=== PATIENT | male | born 1945 | race Caucasian/White ===

== ENCOUNTER 2017-06-14 00:59 | Inpatient (IN) | payer OTHER, MEDICARE ==
[2017-06-14 04:02] VITALS: BMI 26.6
[2017-06-14 07:31] LABS: Basophils % (A) 0 %; CH 30.1; CHCM 32.9; Eosinophils # (A) 0.1 k/uL (0-0.7); Eosinophils % (A) 1 %; HCT 38.3 % (39.0-53.0); HDW 2.73; HGB 12.8 gm/dL (13.0-17.5); Luc # (Auto) 0.15; Luc % (Auto) 2; Lymphocytes # (A) 1.5 k/uL (1.0-4.8); Lymphocytes % (A) 23 %; MCH 30.7 pg (25.0-35.0); MCHC 33.4 g/dL (31.0-37.0); Mean Platelet Volume 7.5; Monocytes # (A) 0.7 k/uL (0-1.0); Monocytes % (A) 10 %; Neutrophils # (A) 4.1 k/uL (1.3-7.7); Neutrophils % (A) 64 %; RBC 4.16 m/uL (4.30-5.90); RDW 14.6 % (11.5-15.5); WBC 6.4 k/uL (3.8-10.6)
[2017-06-14 07:50] LABS: Anion Gap 8 mmol/L; Blood Urea Nitrogen 19 mg/dL (9-20); Carbon Dioxide 27 mmol/L (22-30); Chloride 104 mmol/L (98-107); Glucose 97 mg/dL (74-99); Non-African American GFR(MDRD) >60 (>60 ml/min/1.73 sqM); Potassium 3.5 mmol/L (3.5-5.1); Sodium 139 mmol/L (137-145)
[2017-06-14] MEDS ORDERED: NON-FORMULARY DRUG (Ubidecarenone [Co Q-10] 100 MG) PO SCH (08:00)
[2017-06-14] MEDS: SODIUM CHLORIDE 0.9% 1,000 ML IV SCH ×2 (08:39→16:04)
[2017-06-14] MEDS: CHOLECALCIFEROL 1,000 UNIT TAB PO SCH ×2 (08:39→20:04)
[2017-06-14] MEDS: METOPROLOL SUCCINATE (ER) 50 MG TAB.ER.24H PO SCH (08:39)
[2017-06-14] MEDS: CLOPIDOGREL 75 MG TAB PO SCH (08:39)
[2017-06-14] MEDS: PANTOPRAZOLE 40 MG TABLET PO SCH (08:40)
[2017-06-14] MEDS ORDERED: VANCOMYCIN IV PER PHARMACY 1 EACH MISC MISCELLANE PRN (14:59)
[2017-06-14] MEDS ORDERED: VANCOMYCIN 1,500 MG in SODIUM CHLORIDE 0.9% 250 ML IVPB ONE (16:00)
[2017-06-14] MEDS: HEPARIN SODIUM,PORCINE 5,000 UNIT/ML 1 ML VIAL SQ SCH ×2 (16:08→23:48)
[2017-06-14] MEDS: COLCHICINE 0.6 MG TAB PO SCH ×2 (16:08→20:52)
--- NOTE | 2017-06-14 16:33 | CONS ---
CONSULTATION DATE OF SERVICE: 06/14/2017. REASON FOR CONSULTATION: Right knee possible septic arthritis. HISTORY OF PRESENT ILLNESS: The patient is a 72-year-old male who started having pain in his right knee area. This started on Saturday. The patient said he was working on [employer] and has been kneeling down a lot and has been on his knee a lot. On the day before he was kneeling but did not remember having any scratches or cuts to his right knee area. The morning of his presentation to the [facility], he was having a lot of pain in the right knee area. The pain was throbbing almost 10/10 with swelling of the right knee, and some redness. The patient was running a fever of 102 degrees Fahrenheit. With these symptoms, the patient was evaluated at the [place] facility where the patient did have a fever of 101-103 degrees Fahrenheit. The patient did have an aspirate of his right [place] [address] with 94% PMNs, Gram stain, culture were pending. With concern for likely septic arthritis the patient did receive a dose of Rocephin and Nafcillin and subsequently has been transferred to the [facility] for further management as there was no bed available at the [facility]. REVIEW OF SYSTEMS: Constitutional: Positive for weakness along with the fever. Eyes no complaint. ENT no complaint. Respiratory no complaint. Cardiovascular no complaint. Genitourinary no complaint. Gastrointestinal: No complaint. Musculoskeletal as per HPI. Integumentary as per HPI. PSYCHOLOGICAL: No complaint. Endocrine no complaint. Neurological no complaint. PAST MEDICAL HISTORY: Significant for hypertension, hyperlipidemia, peripheral vascular disease, gout, prostate cancer, hyperlipidemia, hypertension, coronary artery disease, kidney stone, osteoarthritis. 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 The patient did have PTCA and stent of the left leg for peripheral arterial disease. SOCIAL HISTORY: Positive for smoking, socially drinks. No drug use. FAMILY HISTORY: No pertinent findings noticed. ALLERGIES: TO STATINS, DULOXETINE. MEDICATIONS: Medication include the patient is currently on aspirin, Lipitor, vitamin D3, Plavix, colchicine, Lodine, heparin, Toprol, niacin, Protonix. EXAMINATION: Blood pressure is 143/74 with a pulse of 76, temperature 97.9. He is 96% on room air. General description is an elderly male lying in bed in no distress. No tachypnea or accessory muscle of respiration use. HEENT: Shows no pallor or scleral icterus. Oral mucosa membranes dry. Neck trachea central. No thyromegaly. Lungs unlabored breathing. Clear to auscultation anteriorly. Heart S1, S2. Regular rate and rhythm. ABDOMEN: Soft, no tenderness. Left knee is slightly swollen, tender to touch. No redness was noticed. Neurological: The patient is awake, alert, oriented x3. Mood and affect normal. LABS: BUN of 6, creatinine 0.3. The aspirate from the right knee fluid did show white count 5000 with 94% neutrophil. Final fluid crystals were negative. Uric acid of 5.5. DIAGNOSTIC IMPRESSION AND PLAN: Patient with right knee pain and swelling and redness along with a fever 102 degrees Fahrenheit. The patient did have aspirate of right knee which was cloudy with a white count of 84,000, more likely pointing towards a septic arthritis and more likely from a gram-positive skin delta as the patient has been on his knee and kneeling a lot , no fever prior to his sickness illness started. PLAN: 1. Blood cultures x1 stat. We will check a sedimentation rate, CBC and BMP. 2. Vancomycin pharmacy to dose with target of 15 along with Rocephin 2 g daily. 3. We will try to obtain cultures from the hospital. 4. Depending upon his clinical response as well as culture we will adjust medications further if needed. Thank you for this consultation. Will follow this patient along with you. MMODL / IJN: [id number] / YULI
[2017-06-14 16:36] LABS: Basophils % (A) 0 %; CH 29.9; CHCM 32.7; Eosinophils # (A) 0.1 k/uL (0-0.7); Eosinophils % (A) 1 %; HDW 2.78; Luc # (Auto) 0.13; Luc % (Auto) 2; Lymphocytes # (A) 1.3 k/uL (1.0-4.8); Lymphocytes % (A) 20 %; MCH 29.8 pg (25.0-35.0); MCHC 32.4 g/dL (31.0-37.0); MCV 92.1 fL (80.0-100.0); Mean Platelet Volume 7.4; Monocytes # (A) 0.5 k/uL (0-1.0); Monocytes % (A) 7 %; Neutrophils # (A) 4.7 k/uL (1.3-7.7); Neutrophils % (A) 70 %; RBC 4.35 m/uL (4.30-5.90); RDW 14.9 % (11.5-15.5); WBC 6.6 k/uL (3.8-10.6); WBC (Perox) 7.21
[2017-06-14 16:44] LABS: Anion Gap 9 mmol/L; Blood Urea Nitrogen 22 mg/dL (9-20); Calcium 8.9 mg/dL (8.4-10.2); Carbon Dioxide 23 mmol/L (22-30); Chloride 107 mmol/L (98-107); Glucose 99 mg/dL (74-99); Non-African American GFR(MDRD) >60 (>60 ml/min/1.73 sqM); Potassium 3.6 mmol/L (3.5-5.1); Sodium 139 mmol/L (137-145)
--- NOTE | 2017-06-14 17:18 | US ---
EXAMINATION TYPE: US venous doppler duplex LE DATE OF EXAM: 06/14/2017 5:09 PM COMPARISON: NONE CLINICAL HISTORY: R/O DVT. right leg pain SIDE PERFORMED: Bilateral TECHNIQUE: The lower extremity deep venous system is examined utilizing real time linear array sonog andrea with graded compression, doppler sonography and color-flow sonography. VESSELS IMAGED: External Iliac Vein (EIV) Common Femoral Vein Deep Femoral Vein Greater Saphenous Vein * Femoral Vein Popliteal Vein Small Saphenous Vein * Proximal Calf Veins (* superficial vessels) Right Leg: Appears negative for DVT Left Leg: Appears negative for DVT IMPRESSION: Normal exam. No evidence of deep venous thrombosis in both legs.
[2017-06-14 17:27] LABS: Erythrocyte Sedimentation Rate 68 mm/hr (0-15)
[2017-06-14] MEDS: cefTRIAXone IN SWFI 2,000 MG/20 ML SYRINGE IVP SCH (17:43)
--- NOTE | 2017-06-14 18:10 | P.HPIM ---
History of Present Illness H&P Date: 06/14/17 Chief Complaint: Right knee swelling Patient is a 72-year-old male with a known history of coronary artery disease status post stent placement, peripheral vascular disease and recent right femoral stent, hypertension, hyperlipidemia, gouty arthritis not on any medication at home and multiple other medical problems came to the hospital with complaints of left wrist pain and right knee pain swelling and pain worsening for the past 2 days. Patient also had fever and chills the day before and T-max was 102 with significant chills and sweating. Patient says that he was working well sitting on right knee 2 days ago. A arreola also had history of remote history of right knee ligament repair. Patient denied any recent trauma. Patient initially presented to the hospital where patient had right knee. Fluid analysis showed no crystals. Fluid culture is pending at this time. Uric acid 5.5 Patient was given dose of colchicine and antibiotics no cough ceftriaxone and nafcillin in the ER. Patient was also found have slightly elevated d-dimer. Patient was transferred to [facility] due to bed availability issues. Currently patient is afebrile since admission. No leukocytosis. Bilateral lower action duplex was ordered to rule out DVT. Review of Systems Constitutional: Patient denies any fever or chills . No generalized weakness or weight loss. Abdomen: Patient denied nausea vomiting and diarrhea and abdominal pain. Cardiovascular: Patient denies any chest pain or short of breath no palpitations. Respiratory: patient denied any cough is from production. No shortness of breath Neurologic: Patient denied any numbness or tingling headache. Musculoskeletal: Right knee swelling and left wrist swelling and pain Skin: Negative Psychiatric: Negative Endocrine: No heat or cold intolerance. No recent weight gain. Genitourinary: No dysuria or hematuria. All other 14 point ROS negative except the above Past Medical History Past Medical History: Cancer, Hyperlipidemia, Hypertension, Vascular Disorder Additional Past Medical History / Comment(s): OA, calculus of kidney, impotence , PVD, arthralgia, colonic polyps, smoker, gouty arthritis, DJD of the left hip , impaired fasting glucose, prostate cancer, PAD, malignant melanoma, CAD. History of Any Multi-Drug Resistant Organisms: None Reported Past Surgical History: Heart Catheterization With Stent, Prostate Surgery Additional Past Surgical History / Comment(s): Patient has had 2 stents put in ( one through right radial artery and one through femoral artery; most recent around May 2017 w/ 100% blockage). Surgery for skin cancer. Prostate removal r/t prostate ca. Colonoscopies. Past Anesthesia/Blood Transfusion Reactions: No Reported Reaction Date of Last Stent Placement:: 2016 Past Psychological History: No Psychological Hx Reported Smoking Status: Current every day smoker Past Alcohol Use History: None Reported Past Drug Use History: None Reported - Past Family History Father Additional Family Medical History / Comment(s): Father had cancer. Brother(s) Additional Family Medical History / Comment(s): Brother had cancer. Mother Additional Family Medical History / Comment(s): Heart problems. Medications and Allergies Home Medications Medication Instructions Recorded Confirmed Type Aspirin [Adult Low Dose Aspirin EC] 81 mg PO DAILY@199906/14/17 06/14/17 History Cholecalciferol (Vitamin D3) 1,000 unit PO BID@0800,199906/14/17 06/14/17 History [Vitamin D3] Clopidogrel [Plavix] 75 mg PO DAILY@0800 06/14/17 06/14/17 History Colloidal Oatmeal [Eucerin Eczema 1 applic TOPICAL BID 06/14/17 06/14/17 History Relief] Diclofenac Sodium 50 mg PO TID 06/14/17 06/14/17 History Hydrochlorothiazide 12.5 mg PO DAILY@0800 06/14/17 06/14/17 History Metoprolol Succinate [Toprol XL] 50 mg PO DAILY@0800 06/14/17 06/14/17 History Niacin 500 mg PO DAILY@199906/14/17 06/14/17 History Omeprazole 20 mg PO DAILY@0800 06/14/17 06/14/17 History Rosuvastatin [Crestor] 10 mg PO ARMSTRONG 06/14/17 06/14/17 History Triamcinolone 0.1% Cream [Kenalog] 1 applic TOPICAL BID 06/14/17 06/14/17 History Ubidecarenone [Co Q-10] 100 mg PO DAILY@0800 06/14/17 06/14/17 History Allergies Allergy/AdvReac Type Severity Reaction Status Date / Time Eibzxzy-Uiu-Gvi Reductase AdvReac Intermediate Pain Verified 06/14/17 07:50 Inhibitor duloxetine AdvReac Unknown Verified 06/14/17 07:50 Physical Exam Vitals: Vital Signs Temp Pulse Resp BP Pulse Ox 06/14/17 07:00 97.7 F 70 18 131/61 96 06/14/17 03:57 97.2 F L 71 16 127/58 94 L Intake and Output 06/13/17 06/14/17 06/14/17 22:59 06:59 14:59 Other: Voiding Method Toilet # Voids 1 Weight 88.904 kg PHYSICAL EXAMINATION: Patient is lying in the bed comfortably, no acute distress, awake alert and oriented.. HEENT: Normocephalic. Neck is supple. Pupils reactive. Nostrils clear. Oral cavity is moist. Ears reveal no drainage. Neck reveals no JVD, carotid bruits, or thyromegaly. CHEST EXAMINATION: Trachea is central. Symmetrical expansion. Lung castillo clear to auscultation and percussion. CARDIAC: Normal S1, S2 with no gallops. No murmurs ABDOMEN: Soft. Bowel sounds normal. No organomegaly. No abdominal bruits. Extremities: reveal no edema. No clubbing or cyanosis Neurologically awake, alert, oriented x3 with well-coordinated movements. No focal deficits noted Skin: No rash or skin lesions. Psychiatric: Operative. Nonsuicidal Musculoskeletal: Patient does have right knee effusion and decreased range of motion. Left wrist tender to palpation and warm.. Results CBC & Chem 7: 06/14/17 16:19 06/14/17 16:19 Labs: Abnormal Lab Results - Last 24 Hours (Table) 06/14/17 06/14/17 Range/Units 07:15 07:15 RBC 4.16 L (4.30-5.90) m/uL Hgb 12.8 L (13.0-17.5) gm/dL Hct 38.3 L (39.0-53.0) % D-Dimer 0.74 H (<0.60) mg/L FEU Thrombosis Risk Factor Assmnt - DVT/VTE Prophylaxis DVT/VTE Prophylaxis: Pharmacologic Prophylaxis ordered - Choose All That Apply Any of the Below Risk Factors Present?: Yes Each Risk Factor Represents 2 Points: Age 61-74 years Other congenital or acquired thrombophilia - If yes, enter type in comment: No Thrombosis Risk Factor Assessment Total Risk Factor Score: 2 Thrombosis Risk Factor Assessment Level: Low Risk Assessment and Plan Assessment: #1 right knee and left wrist swelling and pain likely due to acute gouty arthritis and DJD. Possible septic arthritis. Awaiting culture reports. We will consult ID for evaluation. We will hold antibiotics at this time. Patient does not have any fever now R leukocytosis. #2 elevated d-dimer. Will check lower extremity duplex to rule out DVT #3 coronary artery disease with history of stent placement about a year back #4 peripheral vascular disease with recent left femoral stent #4 history of gout #6 hypertension controlled #7 hyperlipidemia History of prostate cancer DJD of left hip Plan: Patient will be started on colchicine and continue with NSAID for pain management. We will follow up fluid culture report from [facility]. ID will be consulted for evaluation. We will hold antibiotics at this time. Continue with home medications and follow closely. Further recommendations based on the clinical course. Time with Patient: Greater than 30
[2017-06-14] MEDS: ETODOLAC 200 MG CAPSULE PO SCH (20:03)
[2017-06-14] MEDS: ASPIRIN 81 MG PO SCH (20:04)
[2017-06-14] MEDS: NIACIN TR 500 MG CAPSULE.ER PO SCH (20:04)
[2017-06-15] MEDS: VANCOMYCIN 1,500 MG in SODIUM CHLORIDE 0.9% 250 ML IVPB SCH ×2 (06:10→17:52)
[2017-06-15] MEDS: CHOLECALCIFEROL 1,000 UNIT TAB PO SCH ×2 (07:58→21:30)
[2017-06-15] MEDS: COLCHICINE 0.6 MG TAB PO SCH ×2 (07:59→21:33)
[2017-06-15] MEDS: METOPROLOL SUCCINATE (ER) 50 MG TAB.ER.24H PO SCH (07:59)
[2017-06-15] MEDS: PANTOPRAZOLE 40 MG TABLET PO SCH (07:59)
[2017-06-15] MEDS: HEPARIN SODIUM,PORCINE 5,000 UNIT/ML 1 ML VIAL SQ SCH ×3 (07:59→23:39)
[2017-06-15] MEDS: CLOPIDOGREL 75 MG TAB PO SCH (08:02)
[2017-06-15] MEDS ORDERED: MAG HYDROX/AL HYDROX/SIMETH 30 ML CUP PO PRN (14:32)
--- NOTE | 2017-06-15 16:28 | P.PN ---
Subjective Progress Note Date: 06/15/17 progress note being dictated for Dr. Miranda Interval history:Patient is a 72-year-old male with a known history of coronary artery disease status post stent placement, peripheral vascular disease and recent right femoral stent, hypertension, hyperlipidemia, gouty arthritis not on any medication at home and multiple other medical problems came to the hospital with complaints of left wrist pain and right knee pain swelling and pain worsening for the past 2 days. Patient also had fever and chills the day before and T-max was 102 with significant chills and sweating. Patient says that he was working well sitting on right knee 2 days ago. A arreola also had history of remote history of right knee ligament repair. Patient denied any recent trauma. Patient initially presented to the hospital where patient had right knee. Fluid analysis showed no crystals. Fluid culture is pending at this time. Uric acid 5.5 Patient was given dose of colchicine and antibiotics no cough ceftriaxone and nafcillin in the ER. Patient was also found have slightly elevated d-dimer. Patient was transferred to [facility] due to bed availability issues. Currently patient is afebrile since admission. No leukocytosis. Bilateral lower action duplex was ordered to rule out DVT. 06/15/2017 Dopplers of right and left legs reported negative for DVT. evaluated by infectious disease and placed on both vancomycin andRocephin.aspirate of his right knee revealed a white count of 85,000 with 94 % PMNs. Cultures from prior hospital being obtained.afebrile, normal WBC.blood cultures pending. Denies chest pain, palpitations or increasing shortness of breath. Objective - Vital Signs Vital signs: Vital Signs Temp 98.4 F 06/15/17 15:00 Pulse 65 06/15/17 15:00 Resp 18 06/15/17 15:00 BP 145/79 06/15/17 15:00 Pulse Ox 96 06/15/17 15:00 Intake & Output 06/14/17 06/15/17 06/15/17 18:59 06:59 18:59 Intake Total 480 Balance 480 Intake: Oral 480 Other: # Voids 2 2 2 - Exam Patient is lying in the bed comfortably, no acute distress, awake alert and oriented.. HEENT: Normocephalic. Neck is supple. Pupils reactive. Nostrils clear. Oral cavity is moist. Ears reveal no drainage. Neck reveals no JVD, carotid bruits, or thyromegaly. CHEST EXAMINATION: Trachea is central. Symmetrical expansion. Lung castillo clear to auscultation and percussion. CARDIAC: Normal S1, S2 with no gallops. No murmurs ABDOMEN: Soft. Bowel sounds normal. No organomegaly. No abdominal bruits. Extremities: No clubbing or cyanosis Neurologically awake, alert, oriented x3 with well-coordinated movements. No focal deficits noted Skin: No rash or skin lesions. Psychiatric: Operative. Nonsuicidal Musculoskeletal: Patient does have right knee effusion and decreased range of motion.right knee mild edema and tender. Left wrist tender to palpation and warm. - Labs CBC & Chem 7: 06/14/17 16:19 06/14/17 16:19 Labs: Abnormal Lab Results - Last 24 Hours (Table) 06/14/17 06/14/17 Range/Units 16:19 16:19 ESR 68 H (0-15) mm/hr BUN 22 H (9-20) mg/dL Assessment and Plan Assessment: #1 right knee and left wrist swelling and pain likely due to septic arthritis, possible acute gouty arthritis and DJD Awaiting culture reports. #2 elevated d-dimer. DVTruled out #3 coronary artery disease with history of stent placement about a year back #4 peripheral vascular disease with recent left femoral stent #4 history of gout #6 hypertension controlled #7 hyperlipidemia History of prostate cancer DJD of left hip plan: Continue on current medication regime ,monitoring and symptomatic treatment. [facility] consulted regarding septic arthritis. Antibiotics of Rocephin and vancomycin as per infectious disease. cultures from prior hospitalization been obtained..blood cultures pending. Further recommendations to follow. The impression and plan of care has been dictated as directed. : I performed a history and examination of this patient, discussed the same with the dictator. I agree with the dictator's note ,documented as a scribe. Any additional findings or plans will be noted.
[2017-06-15] MEDS: cefTRIAXone IN SWFI 2,000 MG/20 ML SYRINGE IVP SCH (16:48)
--- NOTE | 2017-06-15 17:19 | XR ---
EXAMINATION TYPE: XR knee complete RT DATE OF EXAM: 06/15/2017 COMPARISON: NONE HISTORY: Knee pain TECHNIQUE: 3 views FINDINGS: There is some narrowing at the medial joint space with spurring of femoral and tibial condy les. There is calcification of the menisci. There are pins from previous surgery at the medial tibial condyle. I see no fracture. IMPRESSION: Osteoarthritic changes with chondrocalcinosis. No fracture seen.
[2017-06-15] MEDS: ASPIRIN 81 MG PO SCH (21:29)
[2017-06-15] MEDS: NIACIN TR 500 MG CAPSULE.ER PO SCH (21:30)
[2017-06-15] MEDS: ETODOLAC 200 MG CAPSULE PO SCH (21:31)
[2017-06-16] MEDS: VANCOMYCIN 1,500 MG in SODIUM CHLORIDE 0.9% 250 ML IVPB SCH ×2 (05:53→17:46)
--- NOTE | 2017-06-16 07:08 | PN ---
PROGRESS NOTE DATE OF SERVICE: 06/15/2017. REASON FOR FOLLOWUP: Right knee septic arthritis. INTERVAL HISTORY: The patient is afebrile. Has been breathing comfortably. Denies any chest pain, shortness of breath or cough. No abdominal pain. Pain to the right knee is currently controlled. EXAMINATION: Blood pressure 131/55 with a pulse of 72. Temperature is 97.2. He is 93% on room air. General description is an elderly male lying in bed in no distress. RESPIRATORY SYSTEM: Unlabored breathing. Clear to auscultation anteriorly. HEART: S1, S2. Regular rate and rhythm. ABDOMEN: Right knee swelling, redness improved. LAB: The patient did have elevated sedimentation rate of 68, CRP 2.7. Blood culture here so far negative. DIAGNOSTIC IMPRESSION AND PLAN: Patient with right knee septic arthritis, likely status post aspirate at the [facility] [address]. While waiting for the culture to finalize keep the patient on Rocephin and Vanco. The discharge antibiotic will depend on the culture report. May benefit from ortho evaluation. Plan of care discussed with the nurse practitioner for the primary team. MMODL / IJN: [id number] /
[2017-06-16] MEDS: CLOPIDOGREL 75 MG TAB PO SCH (07:59)
[2017-06-16] MEDS: CHOLECALCIFEROL 1,000 UNIT TAB PO SCH ×2 (07:59→20:16)
[2017-06-16] MEDS: HEPARIN SODIUM,PORCINE 5,000 UNIT/ML 1 ML VIAL SQ SCH ×2 (07:59→16:11)
[2017-06-16] MEDS: PANTOPRAZOLE 40 MG TABLET PO SCH (08:00)
[2017-06-16] MEDS: COLCHICINE 0.6 MG TAB PO SCH ×2 (08:00→20:16)
[2017-06-16] MEDS: METOPROLOL SUCCINATE (ER) 50 MG TAB.ER.24H PO SCH (08:00)
--- NOTE | 2017-06-16 09:05 | P.CNOR ---
History of Present Illness - [facility] Consult date: 06/16/17 History of present illness: The patient is a 72-year-old male with multiple medical problems who orthopedics has been consulted for possible septic right knee. The patient has had just under a week of progressively worsening knee pain. He denies any open wounds or injuries, but does state that he was working on his knee earlier this week. He was admitted to the [facility] in [place]. Earlier this week the patient had an aspiration. The patient's daughter who is at bedside said that several vials of fluid were drawn off. According to the patient and his family they were told the white count came back 85,000. Due to limitations with the DC being able to check blood work the patient was transferred to [place]. Orthopedics has been consulted to evaluate his right knee. At the time of my evaluation the patient is complaining of right knee pain that radiates down to his ankle. The patient states that he would be able to walk. He denies fevers or chills. He denies feeling systemically sick. He has no nausea or vomiting. The patient has a remote history of ligamentous repair to the right knee in the 1970s. Past Medical History Past Medical History: Cancer, Hyperlipidemia, Hypertension, Vascular Disorder Additional Past Medical History / Comment(s): OA, calculus of kidney, impotence , PVD, arthralgia, colonic polyps, smoker, gouty arthritis, DJD of the left hip , impaired fasting glucose, prostate cancer, PAD, malignant melanoma, CAD. History of Any Multi-Drug Resistant Organisms: None Reported Past Surgical History: Heart Catheterization With Stent, Prostate Surgery Additional Past Surgical History / Comment(s): Patient has had 2 stents put in ( one through right radial artery and one through femoral artery; most recent around May 2017 w/ 100% blockage). Surgery for skin cancer. Prostate removal r/t prostate ca. Colonoscopies. Past Anesthesia/Blood Transfusion Reactions: No Reported Reaction Date of Last Stent Placement:: 2016 Past Psychological History: No Psychological Hx Reported Smoking Status: Current every day smoker Past Alcohol Use History: None Reported Past Drug Use History: None Reported - Past Family History Father Additional Family Medical History / Comment(s): Father had cancer. Brother(s) Additional Family Medical History / Comment(s): Brother had cancer. Mother Additional Family Medical History / Comment(s): Heart problems. Medications and Allergies Home Medications Medication Instructions Recorded Confirmed Type Aspirin [Adult Low Dose Aspirin EC] 81 mg PO DAILY@199906/14/17 06/14/17 History Cholecalciferol (Vitamin D3) 1,000 unit PO BID@0800,199906/14/17 06/14/17 History [Vitamin D3] Clopidogrel [Plavix] 75 mg PO DAILY@0800 06/14/17 06/14/17 History Colloidal Oatmeal [Eucerin Eczema 1 applic TOPICAL BID 06/14/17 06/14/17 History Relief] Diclofenac Sodium 50 mg PO TID 06/14/17 06/14/17 History Hydrochlorothiazide 12.5 mg PO DAILY@0800 06/14/17 06/14/17 History Metoprolol Succinate [Toprol XL] 50 mg PO DAILY@0806/14/17 06/14/17 History Niacin 500 mg PO DAILY@199906/14/17 06/14/17 History Omeprazole 20 mg PO DAILY@0800 06/14/17 06/14/17 History Rosuvastatin [Crestor] 10 mg PO ARMSTRONG 06/14/17 06/14/17 History Triamcinolone 0.1% Cream [Kenalog] 1 applic TOPICAL BID 06/14/17 06/14/17 History Ubidecarenone [Co Q-10] 100 mg PO DAILY@0800 06/14/17 06/14/17 History Allergies Allergy/AdvReac Type Severity Reaction Status Date / Time Rivezbj-Kqf-Juw Reductase AdvReac Intermediate Pain Verified 06/14/17 07:50 Inhibitor duloxetine AdvReac Unknown Verified 06/14/17 07:50 Physical Examination The patient is in no apparent distress and is alert and able to answer questions. His head is normocephalic and atraumatic. He has no neutral rigidity. He demonstrates nonlabored breathing with symmetric chest expansion. His abdomen is soft and nonobese. A focused examination of the right lower extremity was conducted. On inspection there is no overlying erythema. There are no open wounds. There is a healed incision over the medial aspect of the knee from his prior MCL reconstruction. There is a mild to moderate knee effusion. There is slight discomfort with passive range of motion of the knee. The thigh and calf are soft. Distally the right leg is neurovascularly intact. Results - Labs Labs: Abnormal Lab Results - Last 24 Hours (Table) 06/15/17 Range/Units 16:54 C-Reactive Protein 82.7 H (<10.0) mg/L Microbiology - Last 24 Hours (Table) 06/14/17 16:19 Blood Culture - Preliminary Blood No Growth after 24 hours H & H 06/14/17 06/14/17 Range/Units 07:15 16:19 Hgb 12.8 L 13.0 (13.0-17.5) gm/dL Hct 38.3 L 40.0 (39.0-53.0) % Result Diagrams: 06/14/17 16:19 06/14/17 16:19 Assessment and Plan Plan: The patient has a right knee effusion with a prior aspiration at the [facility] which reportedly showed 85,000 white blood cells. I discussed with the patient and his family that if he did in fact have over 50,000 white blood cells in the knee aspirate that meets criteria for needing an irrigation and debridement. Since I'm unable to see an official lab printout documenting a number of white blood cells I would like to attempt a re-aspiration of the knee. The patient will remain nothing by mouth. The fluid will be sent for a stat cell count, Gram stain, crystal analysis and cultures. If the patient has over 50,000 white blood cells in the knee I would recommend arthroscopic I and D. We will continue to closely follow. Procedure: Verbal consent for a right knee aspiration was obtained. The skin over the superolateral aspect of the knee was prepped first with alcohol then with ChloraPrep. An 18-gauge needle was inserted into the superolateral aspect of the knee and 5 mL's of cloudy, straw-colored fluid was drawn off. The needle was withdrawn and a Band-Aid was applied. The needle was removed from the syringe which was then capped and sent to the lab. The patient tolerated this well.
[2017-06-16 10:00] LABS: RBC, Body Fluid 1900 /uL
[2017-06-16] MEDS: cefTRIAXone IN SWFI 2,000 MG/20 ML SYRINGE IVP SCH (16:11)
[2017-06-16] MEDS: INDOMETHACIN 25 MG CAP PO SCH ×2 (16:12→20:16)
[2017-06-16] MEDS ORDERED: ATORVASTATIN 20 MG TAB PO SCH (20:00)
[2017-06-16] MEDS: ASPIRIN 81 MG PO SCH (20:15)
[2017-06-16] MEDS: NIACIN TR 500 MG CAPSULE.ER PO SCH (20:16)
[2017-06-17] MEDS: HEPARIN SODIUM,PORCINE 5,000 UNIT/ML 1 ML VIAL SQ SCH ×4 (00:22→23:56)
--- NOTE | 2017-06-17 00:48 | P.PN ---
Subjective Progress Note Date: 06/16/17 Principal diagnosis: Right knee septic arthritis Interval history:Patient is a 72-year-old male with a known history of coronary artery disease status post stent placement, peripheral vascular disease and recent right femoral stent, hypertension, hyperlipidemia, gouty arthritis not on any medication at home and multiple other medical problems came to the hospital with complaints of left wrist pain and right knee pain swelling and pain worsening for the past 2 days. Patient also had fever and chills the day before and T-max was 102 with significant chills and sweating. Patient says that he was working well sitting on right knee 2 days ago. A arreola also had history of remote history of right knee ligament repair. Patient denied any recent trauma. Patient initially presented to the hospital where patient had right knee. Fluid analysis showed no crystals. Fluid culture is pending at this time. Uric acid 5.5 Patient was given dose of colchicine and antibiotics no cough ceftriaxone and nafcillin in the ER. Patient was also found have slightly elevated d-dimer. Patient was transferred to [facility] due to bed availability issues. Currently patient is afebrile since admission. No leukocytosis. Bilateral lower action duplex was ordered to rule out DVT. 06/15/2017 Dopplers of right and left legs reported negative for DVT. evaluated by infectious disease and placed on both vancomycin andRocephin.aspirate of his right knee revealed a white count of 85,000 with 94 % PMNs. Cultures from prior hospital being obtained.afebrile, normal WBC.blood cultures pending. Denies chest pain, palpitations or increasing shortness of breath. 06/16/2017 Patient says that his right knee pain and swelling is much improved now. Able to bear weight. No fever no chills. No acute overnight issues. Repeat arthrocentesis of the right knee showed pelvis account of 1300. Will follow final culture reports from [facility]. Continued antibiotics. ID and heart is following. Patient is improving symptomatically left wrist pain improved as well. No swelling or redness noted. Objective - Vital Signs Vital signs: Vital Signs Temp 97.8 F 06/16/17 15:00 Pulse 62 06/16/17 15:00 Resp 18 06/16/17 15:00 BP 144/72 06/16/17 15:00 Pulse Ox 95 06/16/17 15:00 Intake & Output 06/16/17 06/16/17 06/17/17 06:59 18:59 06:59 Intake Total 240 Balance 240 Intake: Oral 240 Other: # Voids 2 - Exam PHYSICAL EXAMINATION: Patient is lying in the bed comfortably, no acute distress, awake alert and oriented.. HEENT: Normocephalic. Neck is supple. Pupils reactive. Nostrils clear. Oral cavity is moist. Ears reveal no drainage. Neck reveals no JVD, carotid bruits, or thyromegaly. CHEST EXAMINATION: Trachea is central. Symmetrical expansion. Lung castillo clear to auscultation and percussion. CARDIAC: Normal S1, S2 with no gallops. No murmurs ABDOMEN: Soft. Bowel sounds normal. No organomegaly. No abdominal bruits. Extremities: reveal no edema. No clubbing or cyanosis Neurologically awake, alert, oriented x3 with well-coordinated movements. No focal deficits noted Skin: No rash or skin lesions. Psychiatric: Cooperative. Nonsuicidal Musculoskeletal: Right knee swelling and range of motion improved. Left wrist pain improved and no redness or swelling - Labs CBC & Chem 7: 06/14/17 16:19 06/14/17 16:19 Labs: Microbiology - Last 24 Hours (Table) 06/14/17 16:19 Blood Culture - Preliminary Blood No Growth after 48 hours 06/16/17 08:15 Gram Stain - Preliminary Knee - Right Body Fluid Culture - Preliminary Assessment and Plan Assessment: #1 right knee and left wrist swelling and pain likely due to septic arthritis, possible acute gouty arthritis and DJD Awaiting culture reports. #2 elevated d-dimer. DVTruled out #3 coronary artery disease with history of stent placement about a year back #4 peripheral vascular disease with recent left femoral stent #4 history of gout #6 hypertension controlled #7 hyperlipidemia History of prostate cancer DJD of left hip plan: Continue on current medication regime ,monitoring and symptomatic treatment. [facility] consulted regarding septic arthritis. Antibiotics of Rocephin and vancomycin as per infectious disease. cultures from prior hospitalization been obtained..blood cultures no growth so far. Indomethacin was added.. Further recommendations to follow.
[2017-06-17] MEDS ORDERED: VANCOMYCIN TROUGH DUE 1 EACH MISC MISCELLANE ONE (05:00)
[2017-06-17 05:01] LABS: Basophils % (A) 0 %; CH 29.6; CHCM 32.2; Eosinophils # (A) 0.1 k/uL (0-0.7); Eosinophils % (A) 2 %; HDW 2.93; HGB 11.3 gm/dL (13.0-17.5); Luc # (Auto) 0.11; Luc % (Auto) 3; Lymphocytes # (A) 1.4 k/uL (1.0-4.8); Lymphocytes % (A) 37 %; MCH 30.6 pg (25.0-35.0); MCHC 33.1 g/dL (31.0-37.0); MCV 92.4 fL (80.0-100.0); Mean Platelet Volume 7.7; Monocytes # (A) 0.4 k/uL (0-1.0); Monocytes % (A) 10 %; Neutrophils # (A) 1.9 k/uL (1.3-7.7); Neutrophils % (A) 48 %; RBC 3.68 m/uL (4.30-5.90); RDW 14.7 % (11.5-15.5); WBC 3.9 k/uL (3.8-10.6); WBC (Perox) 3.83
[2017-06-17 05:33] LABS: Anion Gap 5 mmol/L; Blood Urea Nitrogen 20 mg/dL (9-20); Carbon Dioxide 26 mmol/L (22-30); Chloride 111 mmol/L (98-107); Glucose 106 mg/dL (74-99); Non-African American GFR(MDRD) >60 (>60 ml/min/1.73 sqM); Potassium 4.1 mmol/L (3.5-5.1); Sodium 142 mmol/L (137-145)
[2017-06-17] MEDS: VANCOMYCIN 1,500 MG in SODIUM CHLORIDE 0.9% 250 ML IVPB SCH (06:25)
--- NOTE | 2017-06-17 06:30 | PN ---
PROGRESS NOTE DATE OF SERVICE: 06/16/2017. REASON FOR FOLLOWUP: Right knee septic arthritis. INTERVAL HISTORY: The patient is afebrile, has been breathing comfortably. Denies any chest pain, shortness of breath, cough. No abdominal pain, or any worsening pain in the right knee area. EXAMINATION: Blood pressure 144/72 with a pulse of 62, temperature of 97.8. He is 95% on room air. General description is an elderly male lying in bed in no distress. Respiratory system unlabored breathing. Clear to auscultation anteriorly. Heart S1, S2. Regular rate and rhythm. Abdomen soft no tenderness. LABS: The blood culture here has been negative. The culture from the knee are currently pending. DIAGNOSTIC IMPRESSION AND PLAN: Patient with right knee pain, swelling, redness with cloudy fluid from the right knee and elevated white count of 8400 in the knee aspirate fluid likely suspicious for any acute septic arthritis. [facility]. Keep the patient on Rocephin and Vanco to which she has responded. Continue supportive care. MMODL / IJN: [id number] / YULI
[2017-06-17] MEDS: CHOLECALCIFEROL 1,000 UNIT TAB PO SCH ×2 (08:05→20:33)
[2017-06-17] MEDS: INDOMETHACIN 25 MG CAP PO SCH ×3 (08:05→20:33)
[2017-06-17] MEDS: METOPROLOL SUCCINATE (ER) 50 MG TAB.ER.24H PO SCH (08:05)
[2017-06-17] MEDS: CLOPIDOGREL 75 MG TAB PO SCH (08:05)
[2017-06-17] MEDS: PANTOPRAZOLE 40 MG TABLET PO SCH (08:06)
[2017-06-17] MEDS: COLCHICINE 0.6 MG TAB PO SCH ×2 (08:06→20:34)
--- NOTE | 2017-06-17 09:55 | P.PN ---
Subjective Progress Note Date: 06/17/17 Principal diagnosis: Right knee pain Patient is a 72-year-old male seen at bedside this morning. He is being followed for his right knee pain. Joint aspirate did not show evidence of acute infection. He also has a history of gout in that knee. This morning he has little or no pain in the knee. He denies fever, chills, chest pain, shortness of breath, numbness, tingling or calf pain. Objective - Vital Signs Vital signs: Vital Signs Temp 97.6 F 06/17/17 07:00 Pulse 58 L 06/17/17 07:00 Resp 16 06/17/17 07:00 BP 161/70 06/17/17 07:00 Pulse Ox 97 06/17/17 07:00 Intake & Output 06/16/17 06/17/17 06/17/17 18:59 06:59 18:59 Intake Total 240 500 Balance 240 500 Intake: Intake, IV Titration 500 Amount Vancomycin 1,500 mg In 500 Sodium Chloride 0.9% 250 ml @ 125 mls/hr IVPB Q12H [facility] Rx#:[id number] Oral 240 Other: # Voids 2 - Exam Inspection of the right lower extremity and knee show no erythema or effusion. The knee is not hot to touch. The knee is nontender. He can flex to 90 and extend to 0 with no pain. The calf is soft and nontender. Neurovascular status is intact throughout the lower extremity. - Constitutional General appearance: Present: no acute distress - Psychiatric Psychiatric: Present: A&O x's 3, appropriate affect, intact judgment & insight - Labs CBC & Chem 7: 06/17/17 04:48 06/17/17 04:48 Labs: Abnormal Lab Results - Last 24 Hours (Table) 06/17/17 06/17/17 Range/Units 04:48 04:48 RBC 3.68 L (4.30-5.90) m/uL Hgb 11.3 L (13.0-17.5) gm/dL Hct 34.0 L (39.0-53.0) % Chloride 111 H (98-107) mmol/L Glucose 106 H (74-99) mg/dL Microbiology - Last 24 Hours (Table) 06/16/17 08:15 Gram Stain - Preliminary Knee - Right Body Fluid Culture - Preliminary 06/14/17 16:19 Blood Culture - Preliminary Blood No Growth after 48 hours Assessment and Plan (1) Right knee pain Narrative/Plan: His knee is benign this morning. There is no signs of infection, he has no pain , labs are within normal ranges and he is afebrile. He has a history of gout and recommend continued treatment as an outpatient. We will sign off for now he may follow up with us as an outpatient. Thank you Current Visit: Yes Status: Acute Priority: Medium Code(s): M25.561 - PAIN IN RIGHT KNEE SNOMED Code(s): 57588704 Time with Patient: Less than 30
--- NOTE | 2017-06-17 11:56 | PN ---
PROGRESS NOTE DATE OF SERVICE: 06/17/2017 REASON FOR FOLLOWUP: Right knee septic arthritis. INTERVAL HISTORY: The patient is afebrile, has been feeling better. Breathing comfortably. Denies any chest pain, shortness of breath or cough. No abdominal pain. Overall pain to the right knee area has improved. PHYSICAL EXAMINATION: Blood pressure 161/70 with a pulse of 58, temperature 97.6. He is 97% on room air. General description is an elderly male lying in bed in no distress. RESPIRATORY SYSTEM: Unlabored breathing, clear to auscultation anteriorly. HEART: S1, S2. Regular rate and rhythm. ABDOMEN: Soft, no tenderness. RIGHT KNEE: Overall swelling and redness has improved. LABS: Hemoglobin is 11.3, white count of 3.9 with a BUN of 20, creatinine 0.80. DIAGNOSTIC IMPRESSION AND PLAN: Patient with right knee pain, swelling, redness. He did have significant cloudy fluid that was aspirated at the [facility] with a white count of 84,000 in a patient who did have a fever and has been working hard, kneeling mostly a few days prior to his symptoms started, but likely pointing towards septic arthritis. Unfortunately, the cultures that were done at the [facility] are negative and no blood culture done at that facility, as no methicillin-resistant Staphylococcus aureus has been grown, antibiotic will be adjusted only to Rocephin 2 g daily and will discontinue the vancomycin. With clinical suspicions high for a possible septic arthritis, recommend getting a PICC line and 4 weeks of IV Rocephin, awaiting for the insurance approval. MMODL / IJN: [id number] / MTDKatarina
[2017-06-17] MEDS: cefTRIAXone IN SWFI 2,000 MG/20 ML SYRINGE IVP SCH (16:37)
[2017-06-17] MEDS: ASPIRIN 81 MG PO SCH (20:33)
[2017-06-17] MEDS: NIACIN TR 500 MG CAPSULE.ER PO SCH (20:33)
--- NOTE | 2017-06-17 21:10 | P.PN ---
Progress Note - Text The patient has no clinical evidence supporting acute septic arthritis at this point. He has no knee pain, no erythema over his knee, no knee effusion, no pain with PROM and is able to ambulate. His knee aspiration from over the weekend showed 1,300 WBCs well below the threshold of acute septic arthritis of 50,000 WBC. His gram stain was negative. His cultures have been negative to this point. His crystal analysis showed calcium pyrophosphate crystals consistent with pseudogout. Orthopaedics would recommend medical treatment of his right knee pseudogout. We will sign off at this time. Please call with any questions.
--- NOTE | 2017-06-18 00:30 | P.PN ---
Subjective Progress Note Date: 06/17/17 Principal diagnosis: Right knee septic arthritis Interval history:Patient is a 72-year-old male with a known history of coronary artery disease status post stent placement, peripheral vascular disease and recent right femoral stent, hypertension, hyperlipidemia, gouty arthritis not on any medication at home and multiple other medical problems came to the hospital with complaints of left wrist pain and right knee pain swelling and pain worsening for the past 2 days. Patient also had fever and chills the day before and T-max was 102 with significant chills and sweating. Patient says that he was working well sitting on right knee 2 days ago. A arreola also had history of remote history of right knee ligament repair. Patient denied any recent trauma. Patient initially presented to the hospital where patient had right knee. Fluid analysis showed no crystals. Fluid culture is pending at this time. Uric acid 5.5 Patient was given dose of colchicine and antibiotics no cough ceftriaxone and nafcillin in the ER. Patient was also found have slightly elevated d-dimer. Patient was transferred to [facility] due to bed availability issues. Currently patient is afebrile since admission. No leukocytosis. Bilateral lower action duplex was ordered to rule out DVT. 06/15/2017 Dopplers of right and left legs reported negative for DVT. evaluated by infectious disease and placed on both vancomycin andRocephin.aspirate of his right knee revealed a white count of 85,000 with 94 % PMNs. Cultures from prior hospital being obtained.afebrile, normal WBC.blood cultures pending. Denies chest pain, palpitations or increasing shortness of breath. 06/16/2017 Patient says that his right knee pain and swelling is much improved now. Able to bear weight. No fever no chills. No acute overnight issues. Repeat arthrocentesis of the right knee showed pelvis account of 1300. Will follow final culture reports from [facility]. Continued antibiotics. ID and heart is following. Patient is improving symptomatically left wrist pain improved as well. No swelling or redness noted. 06/17/2017 Patient denied any complaints of right knee pain now. Able to bear weight and ambulating well. Left wrist swelling and redness resolved pain resolved. ID recommends to continue with IV antibiotics in the form of ceftriaxone 2 g daily for septic arthritis. No fever no chills no complaints of chest pain or short of breath. No acute overnight issues. Patient symptomatically much improved. Objective - Vital Signs Vital signs: Vital Signs Temp 97.0 F L 06/17/17 22:48 Pulse 61 06/17/17 22:48 Resp 14 06/17/17 22:48 BP 131/60 06/17/17 22:48 Pulse Ox 97 06/17/17 22:48 Intake & Output 06/17/17 06/17/17 06/18/17 06:59 18:59 06:59 Intake Total 500 Balance 500 Intake: Intake, IV Titration 500 Amount Vancomycin 1,500 mg In 500 Sodium Chloride 0.9% 250 ml @ 125 mls/hr IVPB Q12H [facility] Rx#:[id number] Other: # Voids 2 1 - Exam PHYSICAL EXAMINATION: Patient is lying in the bed comfortably, no acute distress, awake alert and oriented.. HEENT: Normocephalic. Neck is supple. Pupils reactive. Nostrils clear. Oral cavity is moist. Ears reveal no drainage. Neck reveals no JVD, carotid bruits, or thyromegaly. CHEST EXAMINATION: Trachea is central. Symmetrical expansion. Lung castillo clear to auscultation and percussion. CARDIAC: Normal S1, S2 with no gallops. No murmurs ABDOMEN: Soft. Bowel sounds normal. No organomegaly. No abdominal bruits. Extremities: reveal no edema. No clubbing or cyanosis Neurologically awake, alert, oriented x3 with well-coordinated movements. No focal deficits noted Skin: No rash or skin lesions. Psychiatric: Cooperative. Nonsuicidal Musculoskeletal: Right knee swelling and range of motion improved. Left wrist pain improved and no redness or swelling - Labs CBC & Chem 7: 06/17/17 04:48 06/17/17 04:48 Labs: Abnormal Lab Results - Last 24 Hours (Table) 06/17/17 06/17/17 Range/Units 04:48 04:48 RBC 3.68 L (4.30-5.90) m/uL Hgb 11.3 L (13.0-17.5) gm/dL Hct 34.0 L (39.0-53.0) % Chloride 111 H (98-107) mmol/L Glucose 106 H (74-99) mg/dL Microbiology - Last 24 Hours (Table) 06/14/17 16:19 Blood Culture - Preliminary Blood No Growth after 72 hours 06/16/17 08:15 Gram Stain - Preliminary Knee - Right Body Fluid Culture - Preliminary Assessment and Plan Assessment: #1 right knee and left wrist swelling and pain likely due to septic arthritis, possible acute gouty arthritis and DJD Awaiting final culture reports. #2 elevated d-dimer. DVTruled out #3 coronary artery disease with history of stent placement about a year back #4 peripheral vascular disease with recent left femoral stent #4 history of gout #6 hypertension controlled #7 hyperlipidemia History of prostate cancer DJD of left hip plan: Continue on current medication regime ,monitoring and symptomatic treatment. [facility] consulted regarding septic arthritis. Antibiotics of Rocephin and vancomycin as per infectious disease. cultures from prior hospitalization been obtained..blood cultures no growth so far. Indomethacin was added.. ID recommends antibiotics and also ceftriaxone IV for septic arthritis. PICC line will be obtained. Due to incidence issues patient is to be transferred to [facility] to cover IV antibiotics once approved by ID at the [facility]. Social workers following transfer the patient. Hospital to get a PICC line and IV antibiotic recommendations depending on evaluation there. Otherwise patient is clinically stable.
[2017-06-18] MEDS ORDERED: MORPHINE SULFATE 10 MG/ML SYRINGE IVP PRN (01:28)
[2017-06-18 02:38] LABS: Creatine Kinase 42 U/L (55-170)
[2017-06-18 02:50] LABS: Creatine Kinase MB 0.5 ng/mL (0.0-2.4); Troponin I <0.012 ng/mL (0.000-0.034)
[2017-06-18] MEDS: PANTOPRAZOLE 40 MG TABLET PO SCH (07:45)
[2017-06-18] MEDS: METOPROLOL SUCCINATE (ER) 50 MG TAB.ER.24H PO SCH (07:45)
[2017-06-18] MEDS: COLCHICINE 0.6 MG TAB PO SCH ×2 (07:46→20:59)
[2017-06-18] MEDS: HEPARIN SODIUM,PORCINE 5,000 UNIT/ML 1 ML VIAL SQ SCH ×2 (07:46→15:32)
[2017-06-18] MEDS: CHOLECALCIFEROL 1,000 UNIT TAB PO SCH ×2 (07:46→20:59)
[2017-06-18] MEDS: CLOPIDOGREL 75 MG TAB PO SCH (07:47)
[2017-06-18] MEDS: INDOMETHACIN 25 MG CAP PO SCH ×3 (07:49→20:57)
[2017-06-18 09:07] LABS: Creatine Kinase MB 0.7 ng/mL (0.0-2.4); Troponin I 0.013 ng/mL (0.000-0.034)
[2017-06-18] MEDS ORDERED: LIDOCAINE 2% INJ 20 MG/ML SQ ONE (10:03)
--- NOTE | 2017-06-18 14:16 | P.CRDCN ---
History of Present Illness Consult date: 06/18/17 History of present illness: This is a 72-year-old male with past medical history significant for CAD with recent stenting to proximal LAD at [facility] in [place], hypertension, hyperlipidemia, peripheral vascular disease and chronic tobacco abuse. We have been asked to see him in consultation for an episode of chest pain last night. he states he woke up around 0100 with mid-sternal chest pain associated with mild shortness of breath. He denies dizziness, palpitations, nausea, vomiting or diaphoresis. The episode lasted only a couple minutes and subsided on its own. Cardiac enzymes are negative x2. EKG reveals sinus mechanism with evidence of an old inferior infarct and non-specific T-wave changes in anterior leads. Blood pressure 140/72 with heart rate 70. He is currently being treated for right knee septic joint with IV antibiotics. Review of Systems CONSTITUTIONAL: Denies fever. Denies chills. EYES: Denies blurred vision. Denies vision changes. Denies eye pain. EARS, NOSE, MOUTH & THROAT: Denies headache. Denies sore throat. Denies ear pain. CARDIOVASCULAR: Complains of one episode of chest pain associated with shortness of breath, resolved. Denies orthopnea. Denies PND. Denies palpitations. RESPIRATORY: Denies cough. GASTROINTESTINAL: Denies abdominal pain. Denies diarrhea. Denies constipation. Denies nausea. Denies vomitng. MUSCULOSKELETAL: Denies myalgias. INTEGUMENTARY: Denies pruitis. Denies rash. NEUROLOGIC: Denies numbness. Denies tingling. Denies weakness. PSYCHIATRIC: Denies anxiety. Denies depression. ENDOCRINE: Denies fatigue. Denies weight change. Denies polydipsia. Denies polyurina. GENITOURINARY: Denies burning, hematuria or urgency with micturation. HEMATOLOGIC: Denies history of anemia. Denies bleeding. Past Medical History Past Medical History: Cancer, Hyperlipidemia, Hypertension, Vascular Disorder Additional Past Medical History / Comment(s): OA, calculus of kidney, impotence , PVD, arthralgia, colonic polyps, smoker, gouty arthritis, DJD of the left hip , impaired fasting glucose, prostate cancer, PAD, malignant melanoma, CAD. History of Any Multi-Drug Resistant Organisms: None Reported Past Surgical History: Heart Catheterization With Stent, Prostate Surgery Additional Past Surgical History / Comment(s): Patient has had 2 stents put in ( one through right radial artery and one through femoral artery; most recent around May 2017 w/ 100% blockage). Surgery for skin cancer. Prostate removal r/t prostate ca. Colonoscopies. Past Anesthesia/Blood Transfusion Reactions: No Reported Reaction Date of Last Stent Placement:: 2016 Past Psychological History: No Psychological Hx Reported Smoking Status: Current every day smoker Past Alcohol Use History: None Reported Past Drug Use History: None Reported - Past Family History Father Additional Family Medical History / Comment(s): Father had cancer. Brother(s) Additional Family Medical History / Comment(s): Brother had cancer. Mother Additional Family Medical History / Comment(s): Heart problems. Medications and Allergies Home Medications Medication Instructions Recorded Confirmed Type Aspirin [Adult Low Dose Aspirin EC] 81 mg PO DAILY@199906/14/17 06/14/17 History Cholecalciferol (Vitamin D3) 1,000 unit PO BID@0806/14/17 06/14/17 History [Vitamin D3] Clopidogrel [Plavix] 75 mg PO DAILY@0800 06/14/17 06/14/17 History Colloidal Oatmeal [Eucerin Eczema 1 applic TOPICAL BID 06/14/17 06/14/17 History Relief] Diclofenac Sodium 50 mg PO TID 06/14/17 06/14/17 History Hydrochlorothiazide 12.5 mg PO DAILY@0800 06/14/17 06/14/17 History Metoprolol Succinate [Toprol XL] 50 mg PO DAILY@0806/14/17 06/14/17 History Niacin 500 mg PO DAILY@199906/14/17 06/14/17 History Omeprazole 20 mg PO DAILY@0800 06/14/17 06/14/17 History Rosuvastatin [Crestor] 10 mg PO NEWTON 06/14/17 06/14/17 History Triamcinolone 0.1% Cream [Kenalog] 1 applic TOPICAL BID 06/14/17 06/14/17 History Ubidecarenone [Co Q-10] 100 mg PO DAILY@0800 06/14/17 06/14/17 History cefTRIAXone [Rocephin] 2,000 mg IVP Q24HR #28 ml 06/17/17 Rx Allergies Allergy/AdvReac Type Severity Reaction Status Date / Time Laufwof-Ooa-Wwr Reductase AdvReac Intermediate Pain Verified 06/14/17 07:50 Inhibitor duloxetine AdvReac Unknown Verified 06/14/17 07:50 Physical Exam Vitals: Vital Signs Temp Pulse Resp BP Pulse Ox 06/18/17 07:00 97.3 F L 70 18 140/72 97 06/18/17 00:56 59 L 16 97 06/18/17 00:55 97.8 F 142/71 06/17/17 22:48 97.0 F L 61 14 131/60 97 06/17/17 15:00 97.6 F 55 L 16 158/81 97 Intake and Output 06/17/17 06/18/17 06/18/17 22:59 06:59 14:59 Other: Voiding Method Toilet # Voids 1 1 1 GENERAL: This is a 72-year-old male in no apparent distress at the time of my examination. HEENT: Head is atraumatic, normocephalic. Pupils are equal, round. Sclerae anicteric. Conjunctivae are clear. Mucous membranes of the mouth are moist. Neck is supple. There is no jugular venous distention. No carotid bruit is heard. LUNGS: Clear to auscultation no wheezes, rales or rhonchi. No chest wall tenderness is noted on palpation or with deep breathing. HEART: Regular rate and rhythm without murmurs, rubs or gallops. S1 and S2 heard. ABDOMEN: Soft, nontender. Bowel sounds are heard. No organomegaly noted. EXTREMITIES: 2+ peripheral pulses with no evidence of peripheral edema and no calf tenderness noted. NEUROLOGIC: Patient is awake, alert and oriented x3. Results 06/17/17 04:48 06/17/17 04:48 Cardiac Enzymes 06/18/17 06/18/17 Range/Units 01:47 08:00 CK-MB (CK-2) 0.5 0.7 (0.0-2.4) ng/mL Troponin I <0.012 0.013 (0.000-0.034) ng/mL Current Medications Generic Name Dose Route Start Last Admin Trade Name Freq PRN Reason Stop Dose Admin Al Hydroxide/Mg Hydroxide 30 ml 06/15/17 14:32 Maalox PO Q4HR PRN GI Upset Aspirin 81 mg 06/14/17 20:00 06/17/17 20:33 Aspirin PO 81 mg DAILY@1999 [facility] Administration Atorvastatin Calcium 20 mg 06/16/17 20:00 06/16/17 20:15 Lipitor PO 20 mg Newton@1999 [facility] Administration Ceftriaxone Sodium 2,000 mg 06/14/17 16:00 06/17/17 16:37 Rocephin IVP 2,000 mg Q24H [facility] Administration Cholecalciferol 1,000 unit 06/14/17 08:00 06/18/17 07:46 Vitamin D3 PO 1,000 unit BID@ [facility] Administration Clopidogrel Bisulfate 75 mg 06/14/17 08:00 06/18/17 07:47 Plavix PO 75 mg DAILY@799 [facility] Administration Colchicine 0.6 mg 06/14/17 14:30 06/18/17 07:46 Colcrys PO 0.6 mg BID [facility] Administration Heparin Sodium (Porcine) 5,000 unit 06/14/17 16:00 06/18/17 07:46 Heparin SQ 5,000 unit Q8HR [facility] Administration Indomethacin 50 mg 06/16/17 16:00 06/18/17 07:49 Indocin PO 50 mg TID [facility] Administration Metoprolol Succinate 50 mg 06/14/17 08:00 06/18/17 07:45 Toprol Xl PO 50 mg DAILY@08 [facility] Administration Morphine Sulfate 2 mg 06/18/17 01:28 Morphine Sulfate (Inj) IVP Q3H PRN Pain/Discomfort Niacin 500 mg 06/14/17 20:00 06/17/17 20:33 Niacin Tr PO 500 mg DAILY@1999 [facility] Administration Pantoprazole Sodium 40 mg 06/14/17 08:00 06/18/17 07:45 Protonix PO 40 mg DAILY@0800 [facility] Administration Sodium Chloride 20 ml 06/18/17 11:22 Saline Flush IV Q4HR PRN PICC Line Sodium Chloride 10 ml 06/25/17 09:00 Saline Flush IV WEEKLY [facility] Sodium Chloride 10 ml 06/18/17 11:22 Saline Flush IV Q4HR PRN PICC Line Intake and Output 06/17/17 06/18/17 06/18/17 22:59 06:59 14:59 Other: Voiding Method Toilet # Voids 1 1 1 06/17/17 04:48 06/17/17 04:48 Assessment and Plan Assessment: ASSESSMENT 1. Chest pain, atypical for acute coronary syndrome 2. History of coronary artery disease with recent stenting April at [facility]. 3. Essential hypertension 4. Hyperlipidemia 5. Chronic tobacco abuse PLAN Continue to obtain serial cardiac enzymes and EKGs to rule out an acute coronary event. Obtain 2-D echocardiogram and Doppler study to assess cardiac structure and function. Obtain previous records from the [facility] in [place]. Nurse Practitioner note has been reviewed, I agree with a documented findings and plan of care. Patient was seen and examined.
[2017-06-18 14:57] LABS: Creatine Kinase 54 U/L (55-170)
--- NOTE | 2017-06-18 14:58 | PN ---
PROGRESS NOTE DATE OF SERVICE: 06/18/2017. REASON FOR FOLLOWUP: Right hip septic arthritis. INTERVAL HISTORY: The patient is afebrile, has been breathing comfortably. Denies any chest pain, shortness of breath or cough. No abdominal pain, or any pain in the right knee area. EXAMINATION: Blood pressure 140/72 with a pulse of 70, temperature 97.3. He is 97% on room air. General description is an elderly male lying in bed in no distress. Respiratory system unlabored breathing. Clear to auscultation anteriorly. Heart S1, S2. Regular rate and rhythm. Abdomen soft, no tenderness. Right leg overall swelling and redness has improved. DIAGNOSTIC IMPRESSION AND PLAN: Patient with right knee pain, swelling, redness with fever. [place] [address] from a knee aspiration done at the [facility]. Blood cultures are negative. Underlying septic arthritis, not entirely excluded. Currently on IV Rocephin. The patient did have repeat knee aspirate and sodiumpyrophosphate crystal came positive come back today. The patient will get a PICC line at the [facility], want the PICC line before him transferred to the [facility] however now subsequently has refused the transfer and improved antibiotic in the outpatient setting. Once antibiotic arranged should be able to go home from ID standpoint. Continue supportive care. MMODL / IJN: [id number] / YULI
[2017-06-18 15:11] LABS: Creatine Kinase MB 0.7 ng/mL (0.0-2.4); Troponin I <0.012 ng/mL (0.000-0.034)
[2017-06-18] MEDS: cefTRIAXone IN SWFI 2,000 MG/20 ML SYRINGE IVP SCH (16:47)
[2017-06-18] MEDS: ASPIRIN 81 MG PO SCH (20:59)
[2017-06-18] MEDS: NIACIN TR 500 MG CAPSULE.ER PO SCH (21:00)
[2017-06-19] MEDS: HEPARIN SODIUM,PORCINE 5,000 UNIT/ML 1 ML VIAL SQ SCH ×3 (00:54→15:21)
[2017-06-19 07:42] VITALS: RESP 16
[2017-06-19] MEDS: CLOPIDOGREL 75 MG TAB PO SCH (07:50)
[2017-06-19] MEDS: METOPROLOL SUCCINATE (ER) 50 MG TAB.ER.24H PO SCH (07:50)
[2017-06-19] MEDS: COLCHICINE 0.6 MG TAB PO SCH (07:50)
[2017-06-19] MEDS: PANTOPRAZOLE 40 MG TABLET PO SCH (07:50)
[2017-06-19] MEDS: INDOMETHACIN 25 MG CAP PO SCH ×2 (07:50→15:24)
--- NOTE | 2017-06-19 08:09 | IR ---
EXAMINATION TYPE: IR cvc insert >=5 years DATE OF EXAM: 06/18/2017 COMPARISON: NONE CLINICAL HISTORY: Infection Needs long-term intravenous access for antibiotics. PROCEDURE: After informed consent, the skin overlying the upper extremity vein was localized with ultrasound and noted to be compressible and patent. An ultrasound image was obtained and submitted on the patient' s chart. The overlying skin was prepped and draped and Lidocaine was used for local anesthesia. A s kin keven was made with a scalpel. Access was gained to the vein under ultrasound guidance with a 21 gauge needle and a 0.018 inch wire was advanced. Access site was dilated with Peel-Away sheath and c atheter tailored to the appropriate length and advanced such that the distal tip is at the cavoatrial junction. Spot image was obtained verifying placement. Catheter was fixed to the skin with suture and a sterile dressing was placed following hemostasis. Catheter was aspirated and flushed with sali ne. Patient was discharged in stable condition without complication.Maximal barrier technique is uti lized. Ultrasound image is documented on the chart. Ultrasound used with sterile technique. Fluoro time and fluoroscopic images submitted to document procedure: 549 intraoperative images, 1.4 m inutes fluoroscopy time IMPRESSION: STATUS POST ULTRASOUND AND FLUOROSCOPIC GUIDED PICC LINE PLACEMENT, READY FOR USE. THIS PROCEDURE WAS PERFORMED BY THE UNDERSIGNED.
--- NOTE | 2017-06-19 12:08 | PN ---
PROGRESS NOTE Mr. De La Torre is 72-year-old male with known history of coronary artery disease who presented with infection at the right knee. He is feeling well today. His breathing is stable. He is denying any chest pain. No dizziness. No palpitation. Had an episode of sinus bradycardia during the night, but otherwise he is asymptomatic. He continued be on aspirin once a day, Lipitor 20 mg daily, Plavix 75 mg daily, metoprolol succinate 50 mg daily. PHYSICAL EXAMINATION: Blood pressure 146/60 with a heart rate in 50s. LUNGS: Clear. HEART: Regular rate and rhythm, S1, S2. No S3. No rub. ABDOMEN: Soft, nontender. EXTREMITIES: No edema. LAB DATA: Revealed troponin less than 0.012. IMPRESSION: 1. History of coronary artery disease, status post stenting of the left anterior descending artery with an episode of chest discomfort yesterday that had atypical features for ischemic heart disease and no evidence of myocardial infarction. 2. Cellulitis of the right knee. 3. Hyperlipidemia. 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 MMODL / IJN: [id number] /
--- NOTE | 2017-06-19 12:19 | ECHOF ---
Referral Reason:chest pain MEASUREMENTS -------- HEIGHT: 182.9 cm WEIGHT: 88.9 kg BP: 140/72 RVIDd: 3.0 cm (< 3.3) IVSd: 1.2 cm (0.6 - 1.1) LVIDd: 4.6 cm (3.9 - 5.3) LVPWd: 1.3 cm (0.6 - 1.1) IVSs: 1.5 cm LVIDs: 3.3 cm LVPWs: 1.9 cm LA Diam: 3.4 cm (2.7 - 3.8) LAESV Index (A-L): 26.47 ml/m Ao Diam: 3.5 cm (2.0 - 3.7) AV Cusp: 2.4 cm (1.5 - 2.6) MV EXCURSION: 24.295 mm (> 18.000) MV EF SLOPE: 75 mm/s (70 - 150) EPSS: 0.9 cm MV E Manoj: 0.87 m/s MV DecT: 188 ms MV A Manoj: 0.97 m/s MV E/A Ratio: 0.90 RAP: 15.00 mmHg RVSP: 36.04 mmHg FINDINGS -------- Sinus rhythm. This was a technically good study. The left ventricular size is normal. There is mild concentric left ventricular hypertrophy. Overa ll left ventricular systolic function is low-normal with, an EF between 50 - 55 %. The right ventricle is normal in size. Normal LA size by volume 22+/-6 ml/m2. The right atrium is normal in size. The aortic valve is trileaflet and appears structurally normal. The mitral valve is normal. Mild mitral regurgitation is present. Mild tricuspid regurgitation present. There is mild pulmonary hypertension. The right ventricular systolic pressure, as measured by Doppler, is 36.04mmHg. Trace/mild (physiologic) pulmonic regurgitation. The aortic root size is normal. The inferior vena cava is dilated with no significant inspiratory collapse which is consistent estima jude right atrial pressure of >15 mmHg. There is no pericardial effusion. CONCLUSIONS -------- 1. Sinus rhythm. 2. This was a technically good study. 3. There is mild concentric left ventricular hypertrophy. 4. Overall left ventricular systolic function is low-normal with, an EF between 50 - 55 %. 5. Normal LA size by volume 22+/-6 ml/m2. 6. The aortic valve is trileaflet and appears structurally normal. 7. The mitral valve is normal. 8. Mild mitral regurgitation is present. 9. Mild tricuspid regurgitation present. 10. There is mild pulmonary hypertension. 11. Trace/mild (physiologic) pulmonic regurgitation. 12. The aortic root size is normal. 13. The inferior vena cava is dilated with no significant inspiratory collapse which is consistent es timated right atrial pressure of >15 mmHg. 14. There is no pericardial effusion. LAMINATOR: Yarely Valles RDCS
--- NOTE | 2017-06-19 12:23 | PN ---
PROGRESS NOTE DATE OF SERVICE: 06/19/2017 REASON FOR FOLLOWUP: Possible right knee septic arthritis. INTERVAL HISTORY: The patient is afebrile, has been breathing comfortably. Denies any chest pain, shortness of breath or cough. Pain and swelling to the right leg has improved. PHYSICAL EXAMINATION: Blood pressure is 146/51 with a pulse of 50, temperature of 98.9. He is 95% on room air. General description is an elderly male up in the room in no distress. RESPIRATORY SYSTEM: Unlabored breathing, clear to auscultation anteriorly. HEART: S1, S2. Regular rate and rhythm. ABDOMEN: Soft, no tenderness. Right leg swelling redness has improved. DIAGNOSTIC IMPRESSION AND PLAN: Patient with right knee, possible septic arthritis. The patient did have elevated white count of 84,000 [facility] He did have a fever with swelling and redness and has been kneeling on his knee for a few days before he started having this problem. With the culture negative, it could be a slow-growing streptococcus. Will keep the patient on ceftriaxone 2 g daily for a total of 4 weeks with close outpatient followup. MMODL / IJN: [id number] /
[2017-06-19] MEDS: cefTRIAXone IN SWFI 2,000 MG/20 ML SYRINGE IVP SCH (15:24)
[2017-06-19 16:11] VITALS: BP 146/73; PULSE 70; TEMP 97.6
--- NOTE | 2017-06-19 17:06 | P.DS ---
Providers Date of admission: 06/14/17 03:31 Expected date of discharge: 06/19/17 Attending physician: Anthony Miranda Consults: 06/14/17 14:30 Consult Physician Routine Consulting Provider: Larry Rios Consult Reason/Comments: right knee fluid Do you want consulting provider notified?: Yes 06/15/17 16:24 Consult Physician Routine Consulting Provider: Carlos Rodriguez Consult Reason/Comments: septic arthritis Do you want consulting provider notified?: Yes [facility] Primary care physician: [facility] Hospital Course: Final Diagnoses: #1 right knee and left wrist swelling and pain possibly septic arthritis, possible acute gouty arthritis and DJD #2 elevated d-dimer. DVTruled out #3 coronary artery disease with history of stent placement about a year back #4 peripheral vascular disease with recent left femoral stent #4 history of gout #6 hypertension controlled #7 hyperlipidemia History of prostate cancer DJD of left hip Patient is a 72-year-old male with a known history of coronary artery disease status post stent placement, peripheral vascular disease and recent right femoral stent, hypertension, hyperlipidemia, gouty arthritis not on any medication at home and multiple other medical problems came to the hospital with complaints of left wrist pain and right knee pain swelling and pain worsening for the past 2 days. Patient also had fever and chills the day before and T-max was 102 with significant chills and sweating. Patient says that he was working well sitting on right knee 2 days ago. also had history of remote history of right knee ligament repair. Patient denied any recent trauma. At [facility], aspirate of his right knee revealed a white count of 85 ,000 with 94% PMNs. [place] Cultures negative, no blood cultures were obtained at the [place], Patient was given dose of colchicine and antibiotics no cough ceftriaxone and nafcillin in the ER. Patient was also found have slightly elevated d-dimer. Patient was transferred to [facility] due to bed availability issues. Bilateral lower action duplex ruled out DVT.Evaluated by orthopedic surgery. Knee aspiration reported 1300 WBCs, Gram stain negative, cultures negative, crystal analysis reported calcium pyrophosphate crystals, consistent with pseudogout as per orthopedics. Maintained on INdocin, colchicine. Evaluated by infectious disease. Maintained on IV antibiotics of Rocephin and vancomycin as per infectious disease. Significant clinical improvement. PICC line placed , with recommendations of Rocephin 2gm daily for a total of 4 weeks, as per ID for potential slow-growing streptococcusCleared by all consults for discharge. Patient is being discharged home in a stable condition with guarded prognosis. The impression and plan of care has been dictated as directed. : I performed a history and examination of this patient, discussed the same with the dictator. I agree with the dictator's note ,documented as a scribe. Any additional findings or plans will be noted. Patient Condition at Discharge: Stable Plan - Discharge Summary Discharge Rx Participant: Yes New Discharge Prescriptions: New cefTRIAXone [Rocephin] 2,000 mg IVP Q24HR #28 ml Continue Diclofenac Sodium 50 mg PO TID Metoprolol Succinate [Toprol XL] 50 mg PO DAILY@0800 Niacin 500 mg PO DAILY@1999 Clopidogrel [Plavix] 75 mg PO DAILY@0800 Omeprazole 20 mg PO DAILY@08 Aspirin [Adult Low Dose Aspirin EC] 81 mg PO DAILY@1999 Cholecalciferol (Vitamin D3) [Vitamin D3] 1,000 unit PO BID@08,1999 Hydrochlorothiazide 12.5 mg PO DAILY@08 Ubidecarenone [Co Q-10] 100 mg PO DAILY@08 Triamcinolone 0.1% Cream [Kenalog] 1 applic TOPICAL BID Rosuvastatin [Crestor] 10 mg PO ARMSTRONG Colloidal Oatmeal [Eucerin Eczema Relief] 1 applic TOPICAL BID Discharge Medication List Aspirin [Adult Low Dose Aspirin EC] 81 mg PO DAILY@199906/14/17 [History] Cholecalciferol (Vitamin D3) [Vitamin D3] 1,000 unit PO BID@08,199906/14/17 [ History] Clopidogrel [Plavix] 75 mg PO DAILY@0800 06/14/17 [History] Colloidal Oatmeal [Eucerin Eczema Relief] 1 applic TOPICAL BID 06/14/17 [History ] Diclofenac Sodium 50 mg PO TID 06/14/17 [History] Hydrochlorothiazide 12.5 mg PO DAILY@0800 06/14/17 [History] Metoprolol Succinate [Toprol XL] 50 mg PO DAILY@0800 06/14/17 [History] Niacin 500 mg PO DAILY@199906/14/17 [History] Omeprazole 20 mg PO DAILY@0806/14/17 [History] Rosuvastatin [Crestor] 10 mg PO ARMSTRONG 06/14/17 [History] Triamcinolone 0.1% Cream [Kenalog] 1 applic TOPICAL BID 06/14/17 [History] Ubidecarenone [Co Q-10] 100 mg PO DAILY@0800 06/14/17 [History] cefTRIAXone [Rocephin] 2,000 mg IVP Q24HR #28 ml 06/17/17 [Rx] Follow up Appointment(s)/Referral(s): May[facility] Light [Other] - 06/27/17 11:00 am [facility], [REFERRING] - Larry Rios MD [STAFF PHYSICIAN] - 06/27/17 9:45 am Ambulatory/Diagnostic Orders: Basic Metabolic Panel [LAB.AMB] Location: Determined By Patient C Reactive Protein [LAB.AMB] Location: Determined By Patient Complete Blood Count w/diff [LAB.AMB] Location: Determined By Patient Erythrocyte Sedimentation Rate [LAB.AMB] Location: Determined By Patient Patient Instructions/Handouts: Septic Arthritis (DC) Activity/Diet/Wound Care/Special Instructions: Complete Infusion to Supply IV Antibiotics . PICC line card given. Cardiac diet. No smoking, cessation information provided. Activity as tolerated. Discharge Disposition: HOME WITH HOME HEALTH SERVICES
--- NOTE | 2017-06-19 22:17 | P.PN ---
Subjective Progress Note Date: 06/18/17 Principal diagnosis: Right knee septic arthritis Interval history:Patient is a 72-year-old male with a known history of coronary artery disease status post stent placement, peripheral vascular disease and recent right femoral stent, hypertension, hyperlipidemia, gouty arthritis not on any medication at home and multiple other medical problems came to the hospital with complaints of left wrist pain and right knee pain swelling and pain worsening for the past 2 days. Patient also had fever and chills the day before and T-max was 102 with significant chills and sweating. Patient says that he was working well sitting on right knee 2 days ago. A arreola also had history of remote history of right knee ligament repair. Patient denied any recent trauma. Patient initially presented to the hospital where patient had right knee. Fluid analysis showed no crystals. Fluid culture is pending at this time. Uric acid 5.5 Patient was given dose of colchicine and antibiotics no cough ceftriaxone and nafcillin in the ER. Patient was also found have slightly elevated d-dimer. Patient was transferred to [facility] due to bed availability issues. Currently patient is afebrile since admission. No leukocytosis. Bilateral lower action duplex was ordered to rule out DVT. 06/15/2017 Dopplers of right and left legs reported negative for DVT. evaluated by infectious disease and placed on both vancomycin andRocephin.aspirate of his right knee revealed a white count of 85,000 with 94 % PMNs. Cultures from prior hospital being obtained.afebrile, normal WBC.blood cultures pending. Denies chest pain, palpitations or increasing shortness of breath. 06/16/2017 Patient says that his right knee pain and swelling is much improved now. Able to bear weight. No fever no chills. No acute overnight issues. Repeat arthrocentesis of the right knee showed pelvis account of 1300. Will follow final culture reports from [facility]. Continued antibiotics. ID and heart is following. Patient is improving symptomatically left wrist pain improved as well. No swelling or redness noted. 06/17/2017 Patient denied any complaints of right knee pain now. Able to bear weight and ambulating well. Left wrist swelling and redness resolved pain resolved. ID recommends to continue with IV antibiotics in the form of ceftriaxone 2 g daily for septic arthritis. No fever no chills no complaints of chest pain or short of breath. No acute overnight issues. Patient symptomatically much improved. 06/18/2017 Patient's right knee pain resolved. Patient is ambulating well. Denies any chest pain or short of breath. No fever no chills. Patient had chest pain last night and cardiology was consulted. Otherwise patient was refused for via transfer. Patient PICC line area pain tomorrow and possible discharge with IV antibiotics. Objective - Vital Signs Vital signs: Vital Signs Temp 98.5 F 06/18/17 15:00 Pulse 61 06/18/17 15:00 Resp 16 06/18/17 15:00 BP 149/70 06/18/17 15:00 Pulse Ox 97 06/18/17 15:00 Intake & Output 06/18/17 06/18/17 06/19/17 06:59 18:59 06:59 Other: Voiding Method Toilet # Voids 1 4 - Exam PHYSICAL EXAMINATION: Patient is lying in the bed comfortably, no acute distress, awake alert and oriented.. HEENT: Normocephalic. Neck is supple. Pupils reactive. Nostrils clear. Oral cavity is moist. Ears reveal no drainage. Neck reveals no JVD, carotid bruits, or thyromegaly. CHEST EXAMINATION: Trachea is central. Symmetrical expansion. Lung castillo clear to auscultation and percussion. CARDIAC: Normal S1, S2 with no gallops. No murmurs ABDOMEN: Soft. Bowel sounds normal. No organomegaly. No abdominal bruits. Extremities: reveal no edema. No clubbing or cyanosis Neurologically awake, alert, oriented x3 with well-coordinated movements. No focal deficits noted Skin: No rash or skin lesions. Psychiatric: Cooperative. Nonsuicidal Musculoskeletal: Right knee swelling and range of motion improved. Left wrist pain improved and no redness or swelling - Labs CBC & Chem 7: 06/17/17 04:48 06/17/17 04:48 Labs: Abnormal Lab Results - Last 24 Hours (Table) 06/18/17 06/18/17 06/18/17 Range/Units 01:47 08:00 13:55 Total Creatine Kinase 42 L 53 L 54 L (55-170) U/L Microbiology - Last 24 Hours (Table) 06/14/17 16:19 Blood Culture - Preliminary Blood No Growth after 96 hours 06/16/17 08:15 Gram Stain - Preliminary Knee - Right Body Fluid Culture - Preliminary Assessment and Plan Assessment: #1 right knee and left wrist swelling and pain likely due to septic arthritis, possible acute gouty arthritis and DJD cultures reviewed. #2 chest pain resolved atypical. Rule out ACS #2 elevated d-dimer. DVT ruled out #3 coronary artery disease with history of stent placement about a year back #4 peripheral vascular disease with recent left femoral stent #4 history of gout #6 hypertension controlled #7 hyperlipidemia History of prostate cancer DJD of left hip plan: Continue on current medication regime ,monitoring and symptomatic treatment. [facility] consulted regarding septic arthritis. Antibiotics of Rocephin and vancomycin as per infectious disease. cultures from prior hospitalization been obtained..blood cultures no growth so far. Indomethacin was added.. ID recommends antibiotics and also ceftriaxone IV for septic arthritis. PICC line will be obtained. Social workers following transfer the patient to [facility]. Patient was refusing to be transferred to [place].. Plan is to get a PICC line and IV antibiotic recommendations in the form of ceftriaxone 2 g daily as per ID.
== END 2017-06-19 15:49 | disposition home health service (06) | DRG 554 ==
LOC: 4MS4W 03:31
PROVIDERS: ADMIT Internal Medicine; ATTEND Internal Medicine
PROC: 02HV33Z Insertion of Infusion Device into Superior Vena Cava, Percutaneous Approach (ICD-10-PCS; principal; 2017-06-19)
PROC: B518ZZA Fluoroscopy of Superior Vena Cava, Guidance (ICD-10-PCS; 2017-06-19)
PROC: B54MZZA Ultrasonography of Right Upper Extremity Veins, Guidance (ICD-10-PCS; 2017-06-19)
DX: M11.261 Other chondrocalcinosis, right knee (principal); I10 Essential (primary) hypertension; E78.5 Hyperlipidemia, unspecified; I25.10 Atherosclerotic heart disease of native coronary artery without angina pectoris; M19.032 Primary osteoarthritis, left wrist; M17.11 Unilateral primary osteoarthritis, right knee; M16.12 Unilateral primary osteoarthritis, left hip; I73.9 Peripheral vascular disease, unspecified; F17.200 Nicotine dependence, unspecified, uncomplicated; R79.1 Abnormal coagulation profile; Z79.02 Long term (current) use of antithrombotics/antiplatelets; Z79.82 Long term (current) use of aspirin; Z79.899 Other long term (current) drug therapy; Z80.9 Family history of malignant neoplasm, unspecified; Z85.46 Personal history of malignant neoplasm of prostate; Z85.820 Personal history of malignant melanoma of skin; Z86.010 Personal history of colon polyps; Z95.5 Presence of coronary angioplasty implant and graft; Z87.442 Personal history of urinary calculi; Z71.6 Tobacco abuse counseling; Z90.79 Acquired absence of other genital organ(s)
CPT/HCPCS: 36569; 76937; 77001; 80048; 80202; 82550; 82553; 84484; 85025; 85379; 85652; 86140; 87040; 87070; 87205; 89050; 89060; 93005; 93306; 93970

== ENCOUNTER → 2018-10-23 | Outpatient (CLI) | payer OTHER ==
--- NOTE | 2018-10-23 13:46 | MR ---
EXAMINATION TYPE: MR cervical spine wo/w con DATE OF EXAM: 10/23/2018 COMPARISON: None HISTORY: Neck pain TECHNIQUE: Multiplanar, multisequence images of the cervical spine were acquired utilizing 9 mL intravenous Gada vist gadolinium contrast. Diffusion weighted imaging was performed. C2-C3: No evidence for degenerative disc disease. No disc bulge/herniation or protrusion. No Canal stenosis. Foramina are patent bilaterally. C3-C4: Lateral extension endplate disc complex results in foraminal encroachment greater on the right . No significant central canal stenosis. C4-C5: Posterior extension endplate disc complex results in moderate to severe central canal stenosis . Lateral extension of endplate disc complex results in bilateral foraminal encroachment. C5-C6: Central posterior disc herniation causes anterior mass effect on the cervical cord. There is m ild central canal stenosis. C6-C7: Lateral extension endplate disc complex results in foraminal encroachment greater on the left. Posterior broad-based disc bulge, endplate disc complex causes minimal anterior mass effect on the t hecal sac. C7-T1: No evidence for degenerative disc disease. No disc bulge/herniation or protrusion. No Canal stenosis. Foramina are patent bilaterally. Cervical segments are intact. There is normal alignment. Cervical spinal cord is of normal signal. Craniovertebral junction relationships are within normal limits. There is multilevel spondylosis. E ndplate discogenic marrow signal change is present, there is associated loss of disc signal at interv ertebral levels, loss of disc height present C3-4, C4-5 and C6-7. Superior endplate depression at T7 may be due to Schmorl's node. Cervical vertebral bodies show preserved height. Minimal anterolisthesi s grade 1 C4-5, retrolisthesis grade 1 C6-7. No significant abnormal enhancement following contrast a dministration. T2 bright focus in the right lobe of the thyroid noted incidentally IMPRESSION: Degenerative disc disease, multilevel foraminal encroachment. Spinal stenosis. Disc herniation C5-6.
== END | disposition home or self-care (01) ==
LOC: RADMRIMAIN 09:32
PROVIDERS: ATTEND Physician Assistant Medical
DX: M48.02 Spinal stenosis, cervical region (principal); M50.222 Other cervical disc displacement at C5-C6 level; M50.30 Other cervical disc degeneration, unspecified cervical region
CPT/HCPCS: 82565; 72156; 36415; A9585

== ENCOUNTER 2019-09-07 09:04 | Emergency (ER) | payer OTHER ==
[2019-09-07 09:25] VITALS: TEMP 97.7
[2019-09-07] MEDS ORDERED: SODIUM CHLORIDE 0.9% 500 ML 500 ML IV STA (09:44)
[2019-09-07] MEDS ORDERED: KETOROLAC 30 MG/ML 1 ML VIAL IVP STA (09:46)
--- NOTE | 2019-09-07 09:55 | ED ---
Abdominal Pain HPI - General Chief Complaint: Abdominal Pain Stated Complaint: poss kidney stones Time Seen by Provider: 09/07/19 09:39 Source: patient, family Mode of arrival: wheelchair Limitations: no limitations - History of Present Illness Initial Comments: Patient is a 74-year-old male presenting to emergency Department with complaints of left flank pain that started early this morning. Patient does have a history of kidney stones and he states this feels similar. He states he's been having right-sided flank pain for the last few days but that has since decreased until this morning when his left side started hurting. He did have a nausea and a slight fever yesterday. He is not currently nauseous. He denies vomiting, diarrhea. His only abdominal surgery was a hernia repair. He isn't having regular bowel movements. He denies hematuria. He has no other complaints at this time. Upon arrival to ER, his vital signs are stable. - Related Data Home Medications Medication Instructions Recorded Confirmed Aspirin [Adult Low Dose Aspirin EC] 81 mg PO DAILY@199906/14/17 06/14/17 Cholecalciferol (Vitamin D3) 1,000 unit PO BID@0806/14/17 06/14/17 [Vitamin D3] Clopidogrel [Plavix] 75 mg PO DAILY@0806/14/17 06/14/17 Colloidal Oatmeal [Eucerin Eczema 1 applic TOPICAL BID 06/14/17 06/14/17 Relief] Diclofenac Sodium 50 mg PO TID 06/14/17 06/14/17 Hydrochlorothiazide 12.5 mg PO DAILY@0800 06/14/17 06/14/17 Metoprolol Succinate [Toprol XL] 50 mg PO DAILY@0806/14/17 06/14/17 Niacin 500 mg PO DAILY@199906/14/17 06/14/17 Omeprazole 20 mg PO DAILY@0800 06/14/17 06/14/17 Rosuvastatin [Crestor] 10 mg PO ARMSTRONG 06/14/17 06/14/17 Triamcinolone 0.1% Cream [Kenalog 1 applic TOPICAL BID 06/14/17 06/14/17 0.1% Cream] Ubidecarenone [Co Q-10] 100 mg PO DAILY@0800 06/14/17 06/14/17 Previous Rx's Medication Instructions Recorded cefTRIAXone [Rocephin] 2,000 mg IVP Q24HR #28 ml 06/17/17 Cephalexin [Keflex] 500 mg PO Q6HR 7 Days #28 cap 09/07/19 Ketorolac [Toradol] 10 mg PO Q8HR #10 tab 09/07/19 Ondansetron Odt [Zofran Odt] 4 mg PO Q8HR PRN #10 tab 09/07/19 Tamsulosin [Flomax] 0.4 mg PO DAILY #5 cap 09/07/19 Allergies Allergy/AdvReac Type Severity Reaction Status Date / Time Kgynuqj-Yoh-Mkw Reductase AdvReac Intermediate Pain Verified 09/07/19 09:25 Inhibitor duloxetine AdvReac Unknown Verified 09/07/19 09:25 Review of Systems ROS Statement: Those systems with pertinent positive or pertinent negative responses have been documented in the HPI. ROS Other: All systems not noted in ROS Statement are negative. Past Medical History Past Medical History: Cancer, Hyperlipidemia, Hypertension, Vascular Disorder Additional Past Medical History / Comment(s): OA, calculus of kidney, impotence, PVD, arthralgia, colonic polyps, smoker, gouty arthritis, DJD of the left hip, impaired fasting glucose, prostate cancer, PAD, malignant melanoma, CAD. History of Any Multi-Drug Resistant Organisms: None Reported Past Surgical History: Heart Catheterization With Stent, Prostate Surgery Additional Past Surgical History / Comment(s): Patient has had 2 stents put in (one through right radial artery and one through femoral artery; most recent around May 2017 w/ 100% blockage). Surgery for skin cancer. Prostate removal r/t prostate ca. Colonoscopies. Past Anesthesia/Blood Transfusion Reactions: No Reported Reaction Date of Last Stent Placement:: 2016 Past Psychological History: No Psychological Hx Reported Smoking Status: Current every day smoker Past Alcohol Use History: None Reported Past Drug Use History: None Reported - Past Family History Father Additional Family Medical History / Comment(s): Father had cancer. Brother(s) Additional Family Medical History / Comment(s): Brother had cancer. Mother Additional Family Medical History / Comment(s): Heart problems. General Exam - General Exam Comments Initial Comments: GENERAL: Well-appearing, well-nourished and in mild distress secondary to pain. HEAD: Atraumatic, normocephalic. EYES: Pupils equal round and reactive to light, extraocular movements intact, sclera anicteric, conjunctiva are normal. ENT: TMs normal, nares patent, oropharynx clear without exudates. Moist mucous membranes. NECK: Normal range of motion, supple without lymphadenopathy or JVD. LUNGS: Breath sounds clear to auscultation bilaterally and equal. No wheezes rales or rhonchi. HEART: Regular rate and rhythm without murmurs, rubs or gallops. ABDOMEN: Soft, nontender, normoactive bowel sounds. No guarding, no rebound. No masses appreciated. Left flank pain. : Deferred EXTREMITIES: Normal range of motion, no pitting or edema. No clubbing or cyanosis. NEUROLOGICAL: Normal speech, normal gait. PSYCH: Normal mood, normal affect. SKIN: Warm, Dry, normal turgor, no rashes or lesions noted. Limitations: no limitations Course Vital Signs 09/07/19 09/07/19 09/07/19 09:22 10:55 11:00 Temperature 97.7 F Pulse Rate 92 74 72 Respiratory 18 16 18 Rate Blood Pressure 149/74 161/73 130/89 O2 Sat by Pulse 95 97 99 Oximetry 09/07/19 12:50 Temperature Pulse Rate 79 Respiratory 20 Rate Blood Pressure 135/85 O2 Sat by Pulse 95 Oximetry Medical Decision Making - Medical Decision Making Patient is a 74-year-old male presenting with left-sided flank pain since this morning. He has history of kidney stones. Vitals are stable. Lab work shows no acute abnormalities. UA shows 19 to VPCs, few bacteria, no blood. CT of the abdomen shows a few tiny nonobstructing left renal. There is a 3 mm n onobstructing lower pole kidney stone. Mild colitis. No bowel obstruction. Patient was given fluids, Toradol, morphine and reports improvement of symptoms. He has been pain-free since his medications. I discussed with patient the findings. Patient is stable for discharge at this time. He will be started antibotic, pain control, nausea meds. He will be given referral to urology. He is in agreement this plan of care. He is stable for discharge at this time. Case discussed with Dr. Marshall. - Lab Data Result diagrams: 09/07/19 10:00 09/07/19 10:00 Lab Results 09/07/19 09/07/19 09/07/19 Range/Units 10:00 10:00 10:45 WBC 9.7 (3.8-10.6) k/uL RBC 4.90 (4.30-5.90) m/uL Hgb 14.3 (13.0-17.5) gm/dL Hct 43.5 (39.0-53.0) % MCV 88.8 (80.0-100.0) fL MCH 29.1 (25.0-35.0) pg MCHC 32.8 (31.0-37.0) g/dL RDW 13.6 (11.5-15.5) % Plt Count 201 (150-450) k/uL Neutrophils % 78 % Lymphocytes % 12 % Monocytes % 7 % Eosinophils % 1 % Basophils % 0 % Neutrophils # 7.6 (1.3-7.7) k/uL Lymphocytes # 1.2 (1.0-4.8) k/uL Monocytes # 0.7 (0-1.0) k/uL Eosinophils # 0.1 (0-0.7) k/uL Basophils # 0.0 (0-0.2) k/uL Sodium 140 (137-145) mmol/L Potassium 4.5 (3.5-5.1) mmol/L Chloride 104 (98-107) mmol/L Carbon Dioxide 30 (22-30) mmol/L Anion Gap 6 mmol/L BUN 14 (9-20) mg/dL Creatinine 0.90 (0.66-1.25) mg/dL Est GFR (CKD-EPI)AfAm >90 (>60 ml/min/1.73 sqM) Est GFR (CKD-EPI)NonAf 84 (>60 ml/min/1.73 sqM) Glucose 97 (74-99) mg/dL Calcium 9.3 (8.4-10.2) mg/dL Total Bilirubin 1.1 (0.2-1.3) mg/dL AST 22 (17-59) U/L ALT 13 (4-49) U/L Alkaline Phosphatase 76 (38-126) U/L Total Protein 6.5 (6.3-8.2) g/dL Albumin 3.9 (3.5-5.0) g/dL Amylase 47 (30-110) U/L Lipase 36 (23-300) U/L Urine Color Yellow Urine Appearance Clear (Clear) Urine pH 6.0 (5.0-8.0) Ur Specific [place] 1.017 (1.001-1.035) Urine Protein Trace H (Negative) Urine Glucose (UA) Negative (Negative) Urine Ketones 1+ H (Negative) Urine Blood Negative (Negative) Urine Nitrite Negative (Negative) Urine Bilirubin Negative (Negative) Urine Urobilinogen <2.0 (<2.0) mg/dL Ur Leukocyte Esterase Small H (Negative) Urine RBC <1 (0-5) /hpf Urine WBC 19 H (0-5) /hpf Urine Bacteria Rare H (None) /hpf Urine Mucus Few H (None) /hpf Disposition Clinical Impression: Left flank pain Disposition: HOME SELF-CARE Condition: Stable Instructions (If sedation given, give patient instructions): Kidney Stones (ED) Additional Instructions: Please return to the Emergency Department if symptoms worsen or any other concerns. Take medications as prescribed. Follow up with urology as discussed. Prescriptions: Tamsulosin [Flomax] 0.4 mg PO DAILY #5 cap Cephalexin [Keflex] 500 mg PO Q6HR 7 Days #28 cap Ketorolac [Toradol] 10 mg PO Q8HR #10 tab Ondansetron Odt [Zofran Odt] 4 mg PO Q8HR PRN #10 tab PRN Reason: Nausea Is patient prescribed a controlled substance at d/c from ED?: No Referrals: Nonstaff,Physician [Primary Care Provider] - 1-2 days Jeromy Main MD [STAFF PHYSICIAN] - 1-2 days
[2019-09-07 10:29] LABS: Basophils % (A) 0 %; Eosinophils # (A) 0.1 k/uL (0-0.7); Eosinophils % (A) 1 %; HCT 43.5 % (39.0-53.0); HGB 14.3 gm/dL (13.0-17.5); Lymphocytes # (A) 1.2 k/uL (1.0-4.8); Lymphocytes % (A) 12 %; MCH 29.1 pg (25.0-35.0); MCHC 32.8 g/dL (31.0-37.0); MCV 88.8 fL (80.0-100.0); Mean Platelet Volume 7.1; Monocytes # (A) 0.7 k/uL (0-1.0); Monocytes % (A) 7 %; Neutrophils # (A) 7.6 k/uL (1.3-7.7); Neutrophils % (A) 78 %; Platelet Count 201 k/uL (150-450); RDW 13.6 % (11.5-15.5); WBC 9.7 k/uL (3.8-10.6)
[2019-09-07] MEDS ORDERED: MORPHINE SULFATE 4 MG/ML SYRINGE IVP STA (10:39)
[2019-09-07 10:48] LABS: ALT 13 U/L (4-49); AST 22 U/L (17-59); African American GFR (CKD) >90 (>60 ml/min/1.73 sqM); Albumin 3.9 g/dL (3.5-5.0); Alkaline Phosphatase 76 U/L (38-126); Amylase 47 U/L (30-110); Anion Gap 6 mmol/L; Blood Urea Nitrogen 14 mg/dL (9-20); Calcium 9.3 mg/dL (8.4-10.2); Carbon Dioxide 30 mmol/L (22-30); Chloride 104 mmol/L (98-107); Glucose 97 mg/dL (74-99); Non-African American GFR(CKD) 84 (>60 ml/min/1.73 sqM); Potassium 4.5 mmol/L (3.5-5.1); Sodium 140 mmol/L (137-145); Total Bilirubin 1.1 mg/dL (0.2-1.3); Total Protein 6.5 g/dL (6.3-8.2)
[2019-09-07 11:27] LABS: Appearance,Urine Clear (Clear); Bacteria,Urine Rare /hpf; Bilirubin,Urine Negative (Negative); Blood,Urine Negative (Negative); Color,Urine Yellow; Glucose,Urine (UA) Negative (Negative); Ketones,Urine 1+ (Negative); Leukocyte Esterase,Urine Small (Negative); Mucus,Urine Few /hpf; Nitrite,Urine Negative (Negative); Protein,Urine Trace (Negative); RBC,Urine <1 /hpf (0-5); Specific Gravity,Urine 1.017 (1.001-1.035); Urobilinogen,Urine <2.0 mg/dL (<2.0); WBC,Urine 19 /hpf (0-5)
--- NOTE | 2019-09-07 12:17 | CT ---
EXAMINATION TYPE: CT abdomen pelvis wo con DATE OF EXAM: 09/07/2019 HISTORY: left flank pain, kidney stone suspected CT DLP: 714.4 mGycm. Automated Exposure Control for Dose Reduction was Utilized. TECHNIQUE: CT scan of the abdomen and pelvis is performed without oral or IV contrast. COMPARISON: NONE FINDINGS: Within the limitations of a non-contrast study, the following observations are made. LUNG BASES: No significant abnormality is appreciated. LIVER/GB: Dependent gallstones in gallbladder. No surrounding inflammatory change or wall thickening. Liver heterogeneously isodense to spleen consistent with mild diffuse fatty infiltration. PANCREAS: Mild generalized fat replaced atrophy. SPLEEN: No significant abnormality is seen. ADRENALS: No significant abnormality is seen. KIDNEYS: Simple appearing 2.7 cm thin-walled cyst laterally midpole of the right kidney axial image 5 7. No right-sided renal calculi or hydronephrosis. Left kidney shows central calcifications favoring vascular calcifications, cannot exclude a few small nonobstructing left renal calculi. There is no hy dronephrosis or obstructing ureteral calculi. No intraluminal calculus thin poorly distended bladder. BOWEL: Suboptimal evaluation of bowel without enteric contrast. Stomach is poorly distended and thus suboptimally evaluated. Kyez-si-boogtmry wall thickening throughout majority of colon is nonspecific. Mild wall thickening in the terminal ileum. And sigmoid colonic diverticulosis without CT evidence f or acute diverticulitis. GENITAL ORGANS: No gross abnormality seen. LYMPH NODES: No greater than 1cm abdominal or pelvic lymph nodes are appreciated. OSSEOUS STRUCTURES: However from left hip arthroplasty causes streak artifact limiting evaluation of pelvic structures. Moderate multilevel spurring in the visualized spine. Moderate narrowing of the ri ght hip joint with mild spurring. Multilevel facet arthropathy lower lumbar spine. OTHER: Moderate calcified plaque of the aorta extends into branch vessels. Small fat-containing umbil ical hernia IMPRESSION: No hydronephrosis or obstructing ureter stone is clearly seen bilaterally. There may be a few tiny nonobstructing left renal calculi versus central vascular calcifications, for reference kavon pect 3 mm nonobstructing calculus lower pole left kidney coronal image 53. Cannot exclude mild coliti s and distal enteritis, correlate clinically. No bowel obstruction.
[2019-09-07] MEDS ORDERED: traMADol 50 MG STARTER PACK 3 TAB BTL PO STA (12:39)
[2019-09-07 12:55] VITALS: BP 135/85; PULSE 79; RESP 20
== END 2019-09-07 12:55 | disposition home or self-care (01) ==
LOC: EC 09:04
DX: R10.9 Unspecified abdominal pain (principal); N20.0 Calculus of kidney; K52.9 Noninfective gastroenteritis and colitis, unspecified; I10 Essential (primary) hypertension; I73.9 Peripheral vascular disease, unspecified; E78.5 Hyperlipidemia, unspecified; F17.200 Nicotine dependence, unspecified, uncomplicated; Z79.82 Long term (current) use of aspirin; Z79.02 Long term (current) use of antithrombotics/antiplatelets; Z79.899 Other long term (current) drug therapy; Z88.8 Allergy status to other drugs, medicaments and biological substances; Z85.46 Personal history of malignant neoplasm of prostate; Z95.5 Presence of coronary angioplasty implant and graft
CPT/HCPCS: 36415; 80053; 82150; 83690; 85025; 81001; 87086; 74176; 99284; 96374; 96375; 96361; J2270; J1885; 87077; 87186

== ENCOUNTER 2020-06-28 09:42 | Emergency (ER) | payer OTHER ==
[2020-06-28] MEDS ORDERED: KETOROLAC 15 MG/ML 1 ML VIAL IM STA (10:11)
--- NOTE | 2020-06-28 10:27 | ED ---
General Adult HPI - General Chief complaint: Extremity Injury, Lower Stated complaint: Knee pain Time Seen by Provider: 06/28/20 10:04 Source: patient, RN notes reviewed Mode of arrival: ambulatory Limitations: no limitations - History of Present Illness Initial comments: 75-year-old male with a past medical history of PVD, gouty arthritis presents to the emergency department for a chief complaint of left knee pain. Patient reports he has had a left knee pain for 5 days now. States he is able to walk on it but it is somewhat painful. Patient states he is able to bend his knee but does have pain with full flexion. He denies any fevers or chills at home. Denies noticing any redness to the knee. Denies any constitutional symptoms. Patient is a history of septic arthritis of the right knee joint with a remote history of knee replacement in the right lower extremity.Patient has no other complaints at this time including shortness of breath, chest pain, abdominal pain, nausea or vomiting, headache, or visual changes. - Related Data Home Medications Medication Instructions Recorded Confirmed Aspirin [Adult Low Dose Aspirin EC] 81 mg PO DAILY 06/14/17 06/28/20 Cholecalciferol (Vitamin D3) 1,000 unit PO BID@0800,199906/14/17 06/28/20 [Vitamin D3] Clopidogrel [Plavix] 75 mg PO DAILY@0800 06/14/17 06/28/20 Metoprolol Succinate [Toprol XL] 25 mg PO DAILY@0800 06/14/17 06/28/20 Triamcinolone 0.1% Cream [Kenalog 1 applic TOPICAL BID PRN 06/14/17 06/28/20 0.1% Cream] Alirocumab [Praluent Pen] 150 mg SQ Q14D 06/28/20 06/28/20 Capsaicin Cream [Trixaicin Cream] 1 applic TOPICAL BID PRN 06/28/20 06/28/20 Diclofenac Sodium Gel [Voltaren 1 applic TOPICAL QID PRN 06/28/20 06/28/20 Gel] HYDROcodone/APAP 5-325MG [Papillion 2 tab PO DAILY PRN 06/28/20 06/28/20 5-325] Hydrothilic Cream 1 applic TOPICAL DAILY PRN 06/28/20 06/28/20 Indomethacin [Indocin] 50 mg PO BID PRN 06/28/20 06/28/20 Levothyroxine Sodium [Synthroid] 175 mcg PO DAILY 06/28/20 06/28/20 Lidocaine 5% Patch [Lidoderm] 1 patch TOPICAL DAILY PRN 06/28/20 06/28/20 Losartan Potassium [Cozaar] 25 mg PO DAILY 06/28/20 06/28/20 Pantoprazole Sodium [Protonix] 20 mg PO DAILY 06/28/20 06/28/20 Psyllium Husk (with Sugar) 1 tsp PO DAILY PRN 06/28/20 06/28/20 [Metamucil Powder] Terbinafine 1% Cream [LamISIL] 1 applic TOPICAL DAILY PRN 06/28/20 06/28/20 hydroCHLOROthiazide [Hydrodiuril] 12.5 mg PO DAILY 06/28/20 06/28/20 Allergies Allergy/AdvReac Type Severity Reaction Status Date / Time Qicwtld-Fiq-Not Reductase AdvReac Intermediate Pain Verified 06/28/20 10:42 Inhibitor duloxetine AdvReac Unknown Verified 06/28/20 10:42 Review of Systems ROS Statement: Those systems with pertinent positive or pertinent negative responses have been documented in the HPI. ROS Other: All systems not noted in ROS Statement are negative. Past Medical History Past Medical History: Cancer, Hyperlipidemia, Hypertension, Vascular Disorder Additional Past Medical History / Comment(s): OA, calculus of kidney, impotence, PVD, arthralgia, colonic polyps, smoker, gouty arthritis, DJD of the left hip, impaired fasting glucose, prostate cancer, PAD, malignant melanoma, CAD. History of Any Multi-Drug Resistant Organisms: None Reported Past Surgical History: Heart Catheterization With Stent, Prostate Surgery Additional Past Surgical History / Comment(s): Patient has had 2 stents put in (one through right radial artery and one through femoral artery; most recent around May 2017 w/ 100% blockage). Surgery for skin cancer. Prostate removal r/t prostate ca. Colonoscopies. Past Anesthesia/Blood Transfusion Reactions: No Reported Reaction Date of Last Stent Placement:: 2016 Past Psychological History: No Psychological Hx Reported Smoking Status: Current every day smoker Past Alcohol Use History: None Reported Past Drug Use History: None Reported - Past Family History Father Additional Family Medical History / Comment(s): Father had cancer. Brother(s) Additional Family Medical History / Comment(s): Brother had cancer. Mother Additional Family Medical History / Comment(s): Heart problems. General Exam Limitations: no limitations General appearance: alert, in no apparent distress Head exam: Present: atraumatic Eye exam: Present: normal appearance, PERRL, EOMI. Absent: scleral icterus, conjunctival injection ENT exam: Present: normal exam, mucous membranes moist Neck exam: Present: normal inspection, full ROM. Absent: tenderness, meningismus, lymphadenopathy Respiratory exam: Present: normal lung sounds bilaterally. Absent: respiratory distress, wheezes, rales, rhonchi, stridor Cardiovascular Exam: Present: regular rate, normal rhythm, normal heart sounds. Absent: bradycardia, tachycardia, irregular rhythm GI/Abdominal exam: Present: soft, normal bowel sounds. Absent: distended, tenderness, guarding, rebound, rigid Extremities exam: Present: normal capillary refill (Sensation intact left lower extremity. DP pulses 2+.), other (Sensation intact left lower extremity.). Absent: full ROM (Patient has about 100 flexion of the left knee, full extension.), tenderness (No tenderness with palpation of the left knee.), joint swelling (Minimal edema of the left knee without erythema or increased warmth.), calf tenderness (No calf tenderness, negative Homans sign. No posterior knee tenderness.) Course Vital Signs 06/28/20 09:51 Temperature 98.5 F Pulse Rate 83 Respiratory 18 Rate Blood Pressure 173/82 O2 Sat by Pulse 97 Oximetry Medical Decision Making - Medical Decision Making Vitals are stable. Patient does have a history of hypertension, likely exacerbated by pain. He is afebrile, no history of fevers at home. Patient has greater than 90 flexion of the left knee without difficulty. Minimal edema without erythema or increased warmth. Symptoms have been ongoing for 5 days and are consistent with patient's previous symptoms of gout. Clinically no ev idence for a septic arthritis. However given history in the right leg laboratory evaluation was performed. White blood cell count is normal at 6.8. CRP minimally elevated at 28.7. Patient's previous episode of septic arthritis was in the 80s. 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 At this time patient will be clinically treated for gout. He was given Toradol which did help with his pain. Patient does have indomethacin at home. He took one tablet 3 days ago has not taken any sense. I discussed he should take this 3 times a day for 3 days. He is to eat something with this to prevent stomach irritation. He will follow-up with his doctor. If he has any worsening symptoms such as fevers or chills or worsening pain patient is aware to return immediately to the emergency room.I discussed this case with attending Dr. Mcclelland who agrees with this assessment and treatment plan. - Lab Data Result diagrams: 06/28/20 10:41 06/28/20 10:41 Lab Results 06/28/20 06/28/20 Range/Units 10:41 10:41 WBC 6.8 (3.8-10.6) k/uL RBC 5.19 (4.30-5.90) m/uL Hgb 14.9 (13.0-17.5) gm/dL Hct 45.5 (39.0-53.0) % MCV 87.6 (80.0-100.0) fL MCH 28.6 (25.0-35.0) pg MCHC 32.7 (31.0-37.0) g/dL RDW 14.3 (11.5-15.5) % Plt Count 232 (150-450) k/uL MPV 6.7 Neutrophils % 68 % Lymphocytes % 22 % Monocytes % 6 % Eosinophils % 2 % Basophils % 0 % Neutrophils # 4.7 (1.3-7.7) k/uL Lymphocytes # 1.5 (1.0-4.8) k/uL Monocytes # 0.4 (0-1.0) k/uL Eosinophils # 0.2 (0-0.7) k/uL Basophils # 0.0 (0-0.2) k/uL Sodium 140 (137-145) mmol/L Potassium 4.2 (3.5-5.1) mmol/L Chloride 105 (98-107) mmol/L Carbon Dioxide 31 H (22-30) mmol/L Anion Gap 4 mmol/L BUN 21 H (9-20) mg/dL Creatinine 0.81 (0.66-1.25) mg/dL Est GFR (CKD-EPI)AfAm >90 (>60 ml/min/1.73 sqM) Est GFR (CKD-EPI)NonAf 88 (>60 ml/min/1.73 sqM) Glucose 105 H (74-99) mg/dL Calcium 9.3 (8.4-10.2) mg/dL C-Reactive Protein 28.7 H (<10.0) mg/L Disposition Clinical Impression: Left knee pain Disposition: HOME SELF-CARE Condition: Good Instructions (If sedation given, give patient instructions): Low Purine Diet (ED), Gout (ED), Knee Pain (ED) Additional Instructions: Please take 50 mg indomethacin 3 times daily for 3 days. Make sure to eat something 30 minutes before taking this. Follow-up with your doctor or orthoped ics. If symptoms are worsening or you get any fevers or need to return to the emergency room. Is patient prescribed a controlled substance at d/c from ED?: No Referrals: Mayelin Light MD [Primary Care Provider] - 1-2 days Carlos Rodriguez MD [STAFF PHYSICIAN] - 1-2 days Time of Disposition: 11:33
[2020-06-28 10:49] LABS: Basophils % (A) 0 %; Eosinophils # (A) 0.2 k/uL (0-0.7); Eosinophils % (A) 2 %; HCT 45.5 % (39.0-53.0); HGB 14.9 gm/dL (13.0-17.5); Lymphocytes # (A) 1.5 k/uL (1.0-4.8); Lymphocytes % (A) 22 %; MCH 28.6 pg (25.0-35.0); MCHC 32.7 g/dL (31.0-37.0); MCV 87.6 fL (80.0-100.0); Mean Platelet Volume 6.7; Monocytes # (A) 0.4 k/uL (0-1.0); Monocytes % (A) 6 %; Neutrophils # (A) 4.7 k/uL (1.3-7.7); Neutrophils % (A) 68 %; Platelet Count 232 k/uL (150-450); RBC 5.19 m/uL (4.30-5.90); RDW 14.3 % (11.5-15.5); WBC 6.8 k/uL (3.8-10.6)
[2020-06-28 11:02] LABS: African American GFR (CKD) >90 (>60 ml/min/1.73 sqM); Anion Gap 4 mmol/L; Blood Urea Nitrogen 21 mg/dL (9-20); C Reactive Protein 28.7 mg/L (<10.0); Calcium 9.3 mg/dL (8.4-10.2); Carbon Dioxide 31 mmol/L (22-30); Chloride 105 mmol/L (98-107); Glucose 105 mg/dL (74-99); Non-African American GFR(CKD) 88 (>60 ml/min/1.73 sqM); Potassium 4.2 mmol/L (3.5-5.1); Sodium 140 mmol/L (137-145)
--- NOTE | 2020-06-28 11:14 | XR ---
Left knee HISTORY: Left knee pain 3 views the left knee, no comparisons There is chondrocalcinosis. Joint space loss is present in the medial compartment is marginal spurrin g. Alignment and bone mineralization are maintained. Suprapatellar increased density is consistent wi th joint effusion, spurring present at the patellofemoral joint. IMPRESSION: Osteoarthritis, consider crystal deposition arthropathy.
[2020-06-28 11:47] VITALS: BP 145/81; PULSE 67; RESP 16; TEMP 98.1
== END 2020-06-28 11:55 | disposition home or self-care (01) ==
LOC: EC 09:42
DX: M17.12 Unilateral primary osteoarthritis, left knee (principal); F17.200 Nicotine dependence, unspecified, uncomplicated; I10 Essential (primary) hypertension; M10.9 Gout, unspecified; M19.90 Unspecified osteoarthritis, unspecified site; Z79.02 Long term (current) use of antithrombotics/antiplatelets; Z79.82 Long term (current) use of aspirin; Z79.899 Other long term (current) drug therapy; Z88.8 Allergy status to other drugs, medicaments and biological substances; Z96.651 Presence of right artificial knee joint; Z95.5 Presence of coronary angioplasty implant and graft; Z85.46 Personal history of malignant neoplasm of prostate; Z85.828 Personal history of other malignant neoplasm of skin; Z90.79 Acquired absence of other genital organ(s); Z80.9 Family history of malignant neoplasm, unspecified
CPT/HCPCS: 36415; 80048; 85025; 86140; 73562; 99283; 96372; J1885